=== PATIENT | male | born 1945 | race Caucasian/White ===

== ENCOUNTER → 2020-03-16 10:26 | Outpatient (BNVA) | payer MEDICARE, OTHER, SELFPAY | PROVIDERS: Family Provider Family Medicine; Visit Provider Surgery | DX: Z85.038 Personal history of other malignant neoplasm of large intestine (principal) | CPT/HCPCS: 87635 ==

== ENCOUNTER 2020-03-21 08:12 | Day surgery (SDC) | payer MEDICARE, OTHER, SELFPAY ==
[2020-03-19 11:01] VITALS: BMI 36.1
[2020-03-21 08:26] VITALS: BMI 33.1
[2020-03-21] MEDS: sodium chloride 0.9% 1,000 ML 30 ML IV (08:37)
[2020-03-21 08:51] VITALS: BP 148/85; PULSE 57; RESP 18; TEMP 36.2; O2SAT 95
--- NOTE | 2020-03-21 09:22 | P.ANESASSM_ITS ---
Pre-Anesthetic Assessment Pre-Anesthetic Assessment: Height/Weight: Height 1.78 m Weight 104.78 kg Temp Pulse Resp BP Pulse Ox 97.2 F L 57 L 18 148/85 95 03/21/20 08:51 03/21/20 08:51 03/21/20 08:51 03/21/20 08:51 03/21/20 08:51 Preop Diagnosis: History of colon resection Proposed Procedure: Operation Date: 03/21/20 10:00 Proposed Procedures p Colonoscopy 75042 Z85.038(Not Applicable) - Lupillo Burciaga MD Was Beta Bill taken within 24 hours: N/A Last intake: Intake Last Liquid Date 03/20/20 Last Liquid Time 22:00 Last Solid Date 03/19/20 Last Solid Time 22:00 Social: Social History: No alcohol and No tobacco Exam: Pre-Anes Outpt Exam: alert, oriented x 3, clear to auscultation bilaterally and regular rate & rhythm Airway: Submandibular: WNL Cervical ROM: WNL MP: 2 History/ROS: No significant complaints Pulmonary: Pulmonary: None reported CV/HEM: CV/HEM: HTN : : None reported Hepatic: Hepatic: None reported GI: GI: GERD Metabolic: Metabolic: Morbid obesity Musc/skel: Musc/skel: None reported Neuropsych: Neuropsych: None reported Anesthetic Plan: ASA status: 3 PFSH Anesthesia PFSH: Family History Denies family history of Anesthesia complication Bleeding disorder Social History Smoking and tobacco status: never smoked Second hand smoke exposure: No Alcohol intake: never Adopted: No Caregiver/support person: Yes Lives independently: Yes Household members: spouse Housing: House Marital status: service: No Current occupational status: retired Current occupational exposures/hazards: No Pets and animals: No History of recent travel: Yes Sexually active: No Current gender identity: Male Jyoti/Baptist: Sabianist Special jyoti needs: No Financial difficulty paying for basics: Not Applicable Data Anesthesia Cardiac Studies: No Data to Display
--- NOTE | 2020-03-21 09:23 | W.PM.OPSUD ---
Surgery/Procedure H&P Update DATE OF PROCEDURE: March 21, 2020 DATE H&P PERFORMED: 02/27/20 H&P UPDATE INFORMATION: I have reviewed H&P completed within last 30 days, I have examined patient prior to procedure and No changes to prior documentation PREOP DIAGNOSIS: History of colon resection PRIMARY INDICATION FOR PROCEDURE: The same PLANNED PROCEDURE: Operation Date: 03/21/20 10:00 Proposed Procedures p Colonoscopy 31262 Z85.038(Not Applicable) - Lupillo Burciaga MD
[2020-03-21 10:29] VITALS: BP 130/96; PULSE 60; RESP 16; TEMP 36.1; O2SAT 97
[2020-03-21 10:40] VITALS: BP 158/84; PULSE 58; RESP 18; O2SAT 100
== END 2020-03-21 10:57 | disposition home or self-care (01) ==
PROVIDERS: PCP Family Medicine; Visit Provider Surgery
PROC: 0DJD8ZZ Inspection of Lower Intestinal Tract, Via Natural or Artificial Opening Endoscopic (ICD-10-PCS; CPT 45378; principal; 2020-03-21 10:00)
DX: Z90.49 Acquired absence of other specified parts of digestive tract (principal); Z85.038 Personal history of other malignant neoplasm of large intestine; K57.30 Diverticulosis of large intestine without perforation or abscess without bleeding; I10 Essential (primary) hypertension; E66.01 Morbid (severe) obesity due to excess calories; Z68.33 Body mass index [BMI] 33.0-33.9, adult; K21.9 Gastro-esophageal reflux disease without esophagitis
CPT/HCPCS: 12345; 45378; J2704; J7030

== ENCOUNTER 2020-04-30 11:45 | Inpatient (IN) | payer MEDICARE, OTHER, SELFPAY ==
[2020-04-30] VITALS (47 sets, daily range): BP systolic 119–151; BP diastolic 73–92; PULSE 62–97; RESP 15–96; TEMP 37–38; O2SAT 87–98; BMI 31.5
--- NOTE | 2020-04-30 12:10 | CTR_ITS ---
PROCEDURE INFORMATION: Exam: CT Angiography Chest With Contrast Exam date and time: 04/30/2020 12:22 PM Age: 74 years old Clinical indication: Dyspnea TECHNIQUE: Imaging protocol: Computed tomographic angiography of the chest with intravenous contrast. 3D rendering (Not supervised by radiologist): MIP and/or 3D reconstructed images were created by the technologist. Radiation optimization: All CT scans at this facility use at least one of these dose optimization techniques: automated exposure control; mA and/or kV adjustment per patient size (includes targeted exams where dose is matched to clinical indication); or iterative reconstruction. Contrast material: OMNI 350; Contrast volume: 71 ml; Contrast route: INTRAVENOUS (IV); COMPARISON: CR XR chest 1V portable [id number] 04/30/2020 12:25 PM RADIATION DOSE METRICS: Total DLP (mGy-cm): 847.62 FINDINGS: Pulmonary arteries: Normal. No pulmonary emboli. Aorta: Unremarkable. No aortic aneurysm. No aortic dissection. Lungs: There is ground-glass opacification in the left upper and bilateral lower lobes of the lung with a peripheral predominance. No dominant lung mass. Pleural space: There is a small left pleural effusion. No pneumothorax. Heart: Unremarkable. No cardiomegaly. No pericardial effusion. Lymph nodes: Unremarkable. No enlarged lymph nodes. Bones/joints: Degenerative change is identified in the spine. There is no evidence for acute fracture or malalignment. Soft tissues: Unremarkable. CT/CT angio chest PE protcl [id number] IMPRESSION: There is no evidence for a pulmonary embolus. There is bilateral ground-glass lung opacification consistent with infection and/or edema. Covid 19 pneumonia would be a consideration. Radiation Dose CTDIVOL = (mGy): DLP = 847.62 (mGy-cm)
--- NOTE | 2020-04-30 12:11 | XR_ITS ---
WS: [id number] Exam: XR chest 1V portable [id number] Date/Time of Exam: 04/30/2020 12:11 PM Reason For Exam: dyspnea/cough Comparison 03/16/2009. There are patchy infiltrates in the mid and lower left lung suggesting pneumonia. The right lung is r elatively clear. Normal cardiomediastinal structures. No pleural effusions. Probable hiatal hernia. R egional bony elements are intact. XR/XR chest 1V portable [id number] IMPRESSION: 1. Patchy groundglass infiltrates in the mid and lower left lung suggesting pne umonia.
--- NOTE | 2020-04-30 12:13 | ED_ITS ---
HPI - COVID General: Chief Complaint: COVID symptoms Stated Complaint: COVID +/SOB Time Seen by Provider: 04/30/20 12:07 Triage information: No fever, cough or shortness of breath . Exposure to COVID + person last 14 days History of Present Illness: HPI Narrative: 74-year-old male presents emergency room complaining of having Covid. In the nurses notes he states he has had it for 14 days however when we checked with his primary care doctor he was diagnosed on 04 23. He has had increasing shortness of breath and cough as well as muscle aches he has had some loose stools but no froilan diarrhea. The last 24 hours he had increasing difficulty with shortness of breath. Normally he does not wear oxygen. His sats are now in the low 90s. complaint: known COVID positive Prior covid testing: yes, results known (Copy obtained from PCP is scanned to the chart) COVID 19 common symptoms: positive fever(s), chills, cough, non-productive cough, dyspnea, fatigue, body aches, headache(s), nasal congestion, nausea and diarrhea COVID 19 other sytmptoms: negative chest pain Onset (ago): day(s) (approx 14 d) Severity: severe Pertinent comorbid conditions: hypertension Treatment prior to arrival: none COVID Results: Nasal/Oral Coronavirus 2019 PCR Negative 03/16/20 10:26 03/16/20 Review of Systems Const: Reports: fever(s), chills, body aches and fatigue ENMT: Reports: nasal congestion Card: Denies: chest pain, edema, dyspnea on exertion or orthopnea Resp: Reports: dyspnea and non-productive cough GI: Reports: nausea and diarrhea : Denies: flank pain, dysuria, urinary frequency or urinary urgency Skin/Breast: Denies: rash or pruritus Neuro: Reports: headache(s) PFSH ED PFSH: Medical History (Updated 04/30/20 @ 15:34 by Pancho Jones MD) BPH (benign prostatic hyperplasia) GERD (gastroesophageal reflux disease) History of colon cancer Hyperlipidemia Hypertension Peripheral neuropathy Surgical History (Updated 04/30/20 @ 15:31 by Pancho Jones MD) History of appendectomy History of colonoscopy (~03/2020[place] [place] of [place]oscopy with polypectomy (12/2018) History of hip replacement, total History of partial colectomy (~01/2019) DR. [facility] [place] Family History (Updated 04/30/20 @ 15:31 by Pancho Jones MD) Mother Stroke Father CAD (coronary artery disease) Denies family history of Anesthesia complication Bleeding disorder Social History Smoking and tobacco status: never smoked Second hand smoke exposure: No Alcohol intake: never Adopted: No Caregiver/support person: Yes Lives independently: Yes Household members: spouse Housing: House Marital status: service: No Current occupational status: retired Current occupational exposures/hazards: No Pets and animals: No History of recent travel: Yes Sexually active: No Current gender identity: Male Jyoti/Jewish: Gnosticism Special jyoti needs: No Financial difficulty paying for basics: Not Applicable Physical Exam Const: COMMON NORMALS: no acute distress GENERAL APPEARANCE: cooperative and comfortable ORIENTATION/CONSCIOUSNESS: Yes awake, Yes oriented to person, Yes oriented to place and Yes oriented to time HENMT: COMMON NORMALS: normocephalic, atraumatic and hearing grossly normal bilaterally HEAD & SCALP: normocephalic and atraumatic Neck/C-Spine: COMMON NORMALS: no JVD Resp: AUSCULTATION: rhonchi and wheezes Cardio: COMMON NORMALS: no JVD, regular rhythm and No murmurs present (Cardio) RATE: tachycardic RHYTHM: regular rhythm GI: COMMON NORMALS: Soft to palpation and No hepatosplenomegaly present AUSCULTATION: Yes normoactive bowel sounds PALPATION: Yes Soft to palpation, No Tenderness to palpation present (GI), No Guarding due to palpation present (GI) and Yes No hepatosplenomegaly present Extremity: COMMON NORMALS: normal to inspection, capillary refill normal, no clubbing, cyanosis or edema, no calf tenderness and no pedal edema Neuro: SENSORIUM/ORIENTATION: Yes oriented to person, Yes oriented to place and Yes oriented to time Skin: COMMON NORMALS: no rashes or lesions noted GENERAL SKIN EXAM: no rashes or lesions noted Course Vital Signs: Vital signs: Vital Signs Temperature 97.6 F 05/01/20 12:00 Pulse Rate 70 05/01/20 13:16 Respiratory Rate 18 05/01/20 13:16 Blood Pressure 129/77 05/01/20 13:00 Pulse Oximetry 93 05/01/20 13:16 MDM - COVID MDM Narrative: Medical decision making narrative: Requiring oxygen supplement suspect he will continue to worsen. Will admit to the VICU, see Dr. Meng's H&P and orders. Lab Data: Labs: Lab Results 04/30/20 04/30/20 04/30/20 Range/Units 12:29 12:43 12:43 WBC 5.8 (4.0-10.0) 10^3/ uL RBC 3.66 L (4.1-5.3) 10^6/u L Hgb 11.6 L (11.7-16.6) g/dL Hct 35.1 L (42.0-52.0) % MCV 95.9 H (80-94) fL MCH 31.7 (28.0-34.0) pg MCHC 33.0 (30.0-36.0) g/dL RDW 12.1 (12.1-15.1) % Plt Count 330 (130-400) 10^3/c mm MPV 8.8 (7.4-10.4) fL Neut % (Auto) 81.0 % Lymph % (Auto) 12.8 % Wirt % (Auto) 4.8 % Eos % (Auto) 1.2 % Baso % (Auto) 0.0 % Neut # (Auto) 4.68 (1.8-7.7) 10^3/u L Lymph # (Auto) 0.7 L (0.8-4.8) 10^3/u L Wirt # (Auto) 0.3 (0.2-0.9) 10^3/u L Eos # (Auto) 0.1 (0.0-0.8) 10^3/u L Baso # (Auto) 0.0 (0.0-0.1) 10^3/u L Nucleated RBC % (a uto) 0 % Nucleated RBCs # 0.0 /100WBC Fibrinogen 768 H (174-498) mg/dL D-Dimer 1.39 H (0-0.59) ug/mIFE U Specimen Type Arterial Sample Site Radial, left ABG pH 7.47 H (7.35-7.45) ABG pCO2 32.0 L (35-45) mmHg ABG pO2 53.6 L (80.0-100.0) mmH g ABG HCO3 23.5 (22-26) mmol/L ABG O2 Saturation 91.0 ABG Base Excess 0.4 (-2.0-2.0) mmol/ L Elvis Test Pos A-a O2 Gradient 7.5 (5-10) mmHg Hematocrit 36.4 L (42-52) % Hgb O2 Saturation 89.4 L (95-100) % Carboxyhemoglobin 1.2 (0.4-20.1) %THgb Methemoglobin 0.6 (0.4-1.5) % Total Hemoglobin 11.9 L (14-18) g/dL Sodium 135.0 (131-143) mmol/L Potassium 4.7 (3.5-5.0) mmol/L Glucose 126.0 H (70-115) mg/dL Ionized Calcium 1.1 (1.1-1.4) mmol/L O2 Delivery Device Room air FiO2 21.0 % Animal Treatment Investigator ID [place]ak Chloride (98-107) mmol/L Carbon Dioxide (22-29) mmol/L Anion Gap (5-19) BUN (8-23) mg/dL Creatinine (0.7-1.2) mg/dL GFR Calculation Calculated Osmolal ity (285-295) mOsm/k g Calcium (8.5-10.5) mg/dL Ferritin (30-400) ng/mL Total Bilirubin (0.15-1.2) mg/dL AST (0-40) U/L ALT (0-41) U/L Alkaline Phosphata se (40-130) IU/L C-Reactive Protein (0.0-4.9) mg/L Total Protein (6.6-8.7) g/dL Albumin (3.5-5.2) g/dL Globulin (1.3-4.6) g/dL 04/30/20 Range/Units 12:43 WBC (4.0-10.0) 10^3/ uL RBC (4.1-5.3) 10^6/u L Hgb (11.7-16.6) g/dL Hct (42.0-52.0) % MCV (80-94) fL MCH (28.0-34.0) pg MCHC (30.0-36.0) g/dL RDW (12.1-15.1) % Plt Count (130-400) 10^3/c mm MPV (7.4-10.4) fL Neut % (Auto) % Lymph % (Auto) % Wirt % (Auto) % Eos % (Auto) % Baso % (Auto) % Neut # (Auto) (1.8-7.7) 10^3/u L Lymph # (Auto) (0.8-4.8) 10^3/u L Wirt # (Auto) (0.2-0.9) 10^3/u L Eos # (Auto) (0.0-0.8) 10^3/u L Baso # (Auto) (0.0-0.1) 10^3/u L Nucleated RBC % (a uto) % Nucleated RBCs # /100WBC Fibrinogen (174-498) mg/dL D-Dimer (0-0.59) ug/mIFE U Specimen Type Sample Site ABG pH (7.35-7.45) ABG pCO2 (35-45) mmHg ABG pO2 (80.0-100.0) mmH g ABG HCO3 (22-26) mmol/L ABG O2 Saturation ABG Base Excess (-2.0-2.0) mmol/ L Elvis Test A-a O2 Gradient (5-10) mmHg Hematocrit (42-52) % Hgb O2 Saturation (95-100) % Carboxyhemoglobin (0.4-20.1) %THgb Methemoglobin (0.4-1.5) % Total Hemoglobin (14-18) g/dL Sodium 134 L (131-143) mmol/L Potassium 4.8 (3.5-5.0) mmol/L Glucose 120 H (70-115) mg/dL Ionized Calcium (1.1-1.4) mmol/L O2 Delivery Device FiO2 % Animal Treatment Investigator ID Chloride 98 (98-107) mmol/L Carbon Dioxide 23 (22-29) mmol/L Anion Gap 17.8 (5-19) BUN 18 (8-23) mg/dL Creatinine 0.9 (0.7-1.2) mg/dL GFR Calculation Not Reportable Calculated Osmolal ity 281 L (285-295) mOsm/k g Calcium 8.7 (8.5-10.5) mg/dL Ferritin 700 H (30-400) ng/mL Total Bilirubin 0.3 (0.15-1.2) mg/dL AST 44 H (0-40) U/L ALT 41 (0-41) U/L Alkaline Phosphata se 91 (40-130) IU/L C-Reactive Protein 144.8 H (0.0-4.9) mg/L Total Protein 7.1 (6.6-8.7) g/dL Albumin 3.7 (3.5-5.2) g/dL Globulin 3.4 (1.3-4.6) g/dL COVID Results: Nasal/Oral Coronavirus 2019 PCR Negative 03/16/20 10:26 03/16/20 Discharge Plan Discharge Patient Disposition: Admitted As Inpatient Admit Provider: Pancho Jones Clinical Impression: Pneumonia due to 2019 novel coronavirus Condition: Stable Coding Level of Care Code ED 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
[2020-04-30 12:40] LABS: ABG PH Result 7.47 (7.35-7.45); Alveolar-Arterial Oxygen Gradi 7.5 mmHg (5-10); Arterial Blood Gas Hematocrit 36.4 % (42-52); Base Excess ABG 0.4 mmol/L (-2.0-2.0); Blood Gas Allen Test Pos; Blood Gas Operator Identificat CAAK; Blood Gas Sample Site Radial, left; Blood Gas Sample Type Arterial; Carboxyhemoglobin 1.2 %THgb (0.4-20.1); HCO3 ABG 23.5 mmol/L (22-26); HGB O2 Sat 89.4 % (95-100); Ionized Calcium Level - ABG 1.1 mmol/L (1.1-1.4); Methemoglobin 0.6 % (0.4-1.5); Oxygen Device ROOM AIR; PO2 ABG 53.6 mmHg (80.0-100.0); Potassium Level - ABG 4.7 mmol/L (3.5-5.0); Total Hemoglobin 11.9 g/dL (14-18)
[2020-04-30 12:50] LABS: Eosinophils # 0.1 10^3/uL (0.0-0.8); Eosinophils % 1.2 %; Hematocrit 35.1 % (42.0-52.0); Hemoglobin 11.6 g/dL (11.7-16.6); Lymphocytes # 0.7 10^3/uL (0.8-4.8); Lymphocytes % 12.8 %; Mean Corpuscular Hemoglobin 31.7 pg (28.0-34.0); Mean Corpuscular Volume 95.9 fL (80-94); Mean Platelet Volume 8.8 fL (7.4-10.4); Monocytes # 0.3 10^3/uL (0.2-0.9); Monocytes % 4.8 %; Neutrophils # 4.68 10^3/uL (1.8-7.7); Nucleated Red Blood Cells % 0 %; Platelet Count 330 10^3/cmm (130-400); Red Blood Count 3.66 10^6/uL (4.1-5.3); Red Cell Distribution Width 12.1 % (12.1-15.1); White Blood Count 5.8 10^3/uL (4.0-10.0)
[2020-04-30 13:03] LABS: Fibrinogen 768 mg/dL (174-498)
[2020-04-30 13:06] LABS: D Dimer 1.39 ug/mIFEU (0-0.59)
[2020-04-30 13:08] LABS: Alanine Aminotransferase 41 U/L (0-41); Albumin Level 3.7 g/dL (3.5-5.2); Alkaline Phosphatase 91 IU/L (40-130); Anion Gap 17.8 (5-19); Aspartate Amino Transferase 44 U/L (0-40); Blood Urea Nitrogen 18 mg/dL (8-23); C Reactive Protein 144.8 mg/L (0.0-4.9); Calcium 8.7 mg/dL (8.5-10.5); Carbon Dioxide 23 mmol/L (22-29); Chloride 98 mmol/L (98-107); Ferritin 700 ng/mL (30-400); Globulin 3.4 g/dL (1.3-4.6); Glucose 120 mg/dL (65-115); Osmolality Calculated 281 mOsm/kg (285-295); Potassium 4.8 mmol/L (3.5-5.1); Sodium 134 mmol/L (136-145); Total Bilirubin 0.3 mg/dL (0.15-1.2); Total Protein 7.1 g/dL (6.6-8.7)
[2020-04-30] MEDS: iohexol 350 mg/mL 100 mL Btl IV (13:42)
--- NOTE | 2020-04-30 15:13 | PC.NURSE ---
Patient to CT via stretcher
--- NOTE | 2020-04-30 15:14 | PC.NURSE ---
Attempted to give report. Told room not ready. Told Vicki would call to take report once ready.
--- NOTE | 2020-04-30 15:28 | PM.HP ---
Providers/Chief Complaint Admitting Physician: Pancho Jones MD Primary Care Provider: Linda Lara MD Chief Complaint: COVID +/SOB History of Present Illness Adama Galeas is a 74 year old male with a past medical history of hypertension, who presents to [facility] due to fatigue, malaise, shortness of breath, cough, fevers and chills. 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 No known exposure to COVID-19, no recent travel, no history of pneumonia, no history of COPD, no history of CHF, no history of CAD, no history of strokes. 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 He presented to his primary care physician's office, he tested positive for Covid about a week ago, has tried to continue his day-to-day function, but continues to have significant fatigue, malaise and shortness of breath with exertion, nonproductive cough. Review of Systems Const: Reports: fever(s), chills, fatigue and malaise Eyes: Denies: change in vision or blurry vision ENMT: Denies: nasal congestion Card: Denies: chest pain or palpitations Resp: Reports: dyspnea and non-productive cough; Denies: productive cough or wheezing GI: Denies: abdominal pain, nausea, vomiting, hematemesis, diarrhea, constipation, hematochezia or melena : Denies: flank pain, difficulty urinating, dysuria or urinary frequency Musc: Denies: neck pain or back pain Skin/Breast: Denies: rash Neuro: Denies: headache(s), dizziness or vertigo Psych: Denies: anxiety or depression Endo: Denies: polyuria or polydipsia Medications/Allergies Home Medications Medication Instructions Recorded Confirmed Last Taken Type lisinopril 20 mg tablet 20 mg PO DAILY 02/22/20 04/30/20 04/30/20 History montelukast 10 mg tablet 10 mg PO DAILY 02/22/20 04/30/20 03/20/20 History omeprazole 20 mg capsule,delayed 20 mg PO DAILY 02/22/20 04/30/20 03/20/20 History release Vitamin D3 1 cap PO DAILY 04/30/20 04/30/20 Unknown History acetaminophen [Tylenol Extra 1,000 mg PO PRN 04/30/20 04/30/20 Unknown History Strength] aspirin 325 mg PO DAILY PRN 04/30/20 04/30/20 Unknown History multivitamin 1 tab PO DAILY 04/30/20 04/30/20 Unknown History zinc 1 cap PO DAILY 04/30/20 04/30/20 Unknown History Allergies Allergy/AdvReac Type Severity Reaction Status Date / Time No Known Allergies Allergy Verified 03/30/20 15:51 PFSH Acute PFSH: Medical History (Updated 04/30/20 @ 15:34 by Pancho Jones MD) BPH (benign prostatic hyperplasia) GERD (gastroesophageal reflux disease) History of colon cancer Hyperlipidemia Hypertension Peripheral neuropathy Surgical History (Updated 04/30/20 @ 15:31 by Pancho Jones MD) History of appendectomy [place] [facility] [place] of colonoscopy with polypectomy (12/2018) History of hip replacement, total History of partial colectomy (~01/2019) DR. CAMPBELL [place] Family History (Updated 04/30/20 @ 15:31 by Pancho Jones MD) Mother Stroke Father CAD (coronary artery disease) Denies family history of Anesthesia complication Bleeding disorder Social History Smoking and tobacco status: never smoked Second hand smoke exposure: No Alcohol intake: never Adopted: No Caregiver/support person: Yes Lives independently: Yes Household members: spouse Housing: House Marital status: service: No Current occupational status: retired Current occupational exposures/hazards: No Pets and animals: No History of recent travel: Yes Sexually active: No Current gender identity: Male Jyoti/Spiritism: Sabianist Special jyoti needs: No Financial difficulty paying for basics: Not Applicable Vitals/I&O/Wt Last Vital Signs Temp 98.9 F 04/30/20 12:04 Pulse 88 04/30/20 15:00 Resp 18 04/30/20 15:00 BP 144/76 04/30/20 15:00 Pulse Ox 98 04/30/20 15:00 Weight last 48 hrs Weight 99.79 kg Physical Exam Const: COMMON NORMALS: no acute distress and patient oriented x3 GENERAL APPEARANCE: cooperative and comfortable HENMT: COMMON NORMALS: normocephalic HEAD & SCALP: normocephalic Eye: COMMON NORMALS: Equal, round and reactive pupils present and EOMs intact bilaterally GENERAL EYE: appearance normal, both eyes and all related structures PUPIL: Yes Equal, round and reactive pupils present Neck/C-Spine: COMMON NORMALS: full ROM, no lymphadenopathy, no JVD and Thyroid normal THYROID: Thyroid normal Lymph: LYMPHATIC: no lymphadenopathy noted Resp: COMMON NORMALS: normal respiratory effort, No retractions, No use of accessory muscles and clear to auscultation bilaterally AUSCULTATION: clear to auscultation bilaterally Cardio: COMMON NORMALS: no JVD, regular rate, regular rhythm, S1 normal heart sound present, S2 normal heart sound present, No gallops present (Cardio), No clicks present (Cardio) and No murmurs present (Cardio) RATE: regular rate RHYTHM: regular rhythm HEART SOUNDS: S1 normal heart sound present and S2 normal heart sound present GI: COMMON NORMALS: Normal to inspection, nondistended, normoactive bowel sounds present, Soft to palpation, non-tender and No hepatosplenomegaly present PALPATION: Yes Soft to palpation and Yes No hepatosplenomegaly present Extremity: COMMON NORMALS: normal to inspection, full ROM and no pedal edema Neuro: COMMON NORMALS: patient oriented x3, CN's II-XII intact bilaterally, moves all extremities and no focal motor deficits Psych: COMMON NORMALS: mental status grossly normal, Normal thought process present and cooperative THOUGHT PROCESS: Normal thought process present Data : 04/30/20 12:43 04/30/20 12:43 Micro: Microbiology 04/30/20 12:43 Blood Culture - Preliminary Blood SPECIMEN COLLECTED A&P Assessment and plan (1) Acute respiratory failure with hypoxia: -Secondary to COVID-19 pneumonia, concern for secondary bacterial pneumonia Admit to viral ICU -Full code -Full dose Lovenox, for hypercoagulability concerns -Decadron -Remdesivir -Azithromycin and Rocephin -Lasix as needed for fluid overload -Vitamin C and zinc -Monitor respiratory status closely -Physical therapy -Get up out of bed -Advair, albuterol Status: Acute (2) Pneumonia due to 2019 novel coronavirus: - Status: Acute (3) Diverticulosis: Status: Chronic (4) Secondary bacterial pneumonia: Status: Acute Attestations Medical Necessity Statement*: Patient requires hospitalization, inpatient, greater than 2 midnights, for acute hypoxic respiratory failure secondary to COVID-19 pneumonia Coding Level of Care Code 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
[2020-04-30] MEDS: cefTRIAXone 1,000 MG in sodium chloride 0.9% (plus) 50 ML 100 MG IV (16:52)
[2020-04-30] MEDS: enoxaparin 100 mg/mL Syringe SUBCUT (16:52)
[2020-04-30] MEDS: albuterol 8 gm MDI 1 PUFF INHALATION ×3 (16:54→23:31)
[2020-04-30] MEDS: azithromycin 500 MG in sodium chloride 0.9% 250 ML 250 MG IV (17:09)
[2020-04-30] MEDS: ascorbic acid 500 mg Tablet 1000 MG PO (17:56)
[2020-04-30] MEDS: benzonatate 100 mg Capsule PO (18:00)
--- NOTE | 2020-04-30 18:45 | PC.NURSE ---
Received report on patient from Vicki SOFIA. Assumed care at this time.
--- NOTE | 2020-04-30 20:00 | PC.NURSE ---
Patient stated that when he coughs he sometimes has a small bowel movement. He stated he would like to sit on the stool but was afraid that he would get tangled up in all his cords. BSC brought to bedside and I observed patient getting up to BSC with no assist. Tolerated the activity well. He stated that he felt comfortable getting up and down on his own now that the BSC is next to the bed. Encouraged patient to use the call light if he felt he needed any assistance. Patient verbalized understanding.
--- NOTE | 2020-04-30 21:00 | PC.NURSE ---
called to check on . Discussed with regarding face timing patient to be able to see him and talk to him. She stated she would like to do that tomorrow. did talk to patient via phone and patient stated he felt better after visiting with his .
[2020-05-01] VITALS (53 sets, daily range): BP systolic 95–146; BP diastolic 64–88; PULSE 55–83; RESP 16–34; TEMP 36.4–37; O2SAT 86–98
[2020-05-01] MEDS: enoxaparin 100 mg/mL Syringe SUBCUT ×2 (03:42→15:17)
[2020-05-01] MEDS: albuterol 8 gm MDI 1 PUFF INHALATION ×3 (03:58→12:45)
[2020-05-01 04:38] LABS: Lactic Sepsis W/Reflex 1.3 mmol/L (0.5-2.2)
[2020-05-01 05:03] LABS: Hematocrit 34.4 % (42.0-52.0); Hemoglobin 11.2 g/dL (11.7-16.6); Lymphocytes # 0.5 10^3/uL (0.8-4.8); Lymphocytes % 15.5 %; Mean Corpuscular HGB Conc 32.6 g/dL (30.0-36.0); Mean Corpuscular Hemoglobin 31.5 pg (28.0-34.0); Mean Corpuscular Volume 96.6 fL (80-94); Mean Platelet Volume 9.7 fL (7.4-10.4); Monocytes # 0.2 10^3/uL (0.2-0.9); Monocytes % 4.7 %; Neutrophils # 2.71 10^3/uL (1.8-7.7); Neutrophils % 78.9 %; Nucleated Red Blood Cells % 0 %; Platelet Count 298 10^3/cmm (130-400); Red Blood Count 3.56 10^6/uL (4.1-5.3); White Blood Count 3.4 10^3/uL (4.0-10.0)
[2020-05-01 05:14] LABS: INR 1.01 (0.8-1.2)
[2020-05-01 05:15] LABS: Fibrinogen 859 mg/dL (174-498)
[2020-05-01 05:18] LABS: D Dimer 1.23 ug/mIFEU (0-0.59)
[2020-05-01 05:30] LABS: NT Pro B Type Natriuretic Pept 95 pg/mL (0-125); Procalcitonin 0.15 ng/mL (0-0.5)
[2020-05-01 05:33] LABS: C Reactive Protein 168.2 mg/L (0.0-4.9); Magnesium 2.3 mg/dL (1.7-2.3); Phosphorus 3.7 mg/dL (2.5-4.5); Thyroid Stimulating Hormone 0.36 uIU/mL (0.27-4.20)
[2020-05-01 05:34] LABS: Alanine Aminotransferase 41 U/L (0-41); Albumin Level 3.4 g/dL (3.5-5.2); Alkaline Phosphatase 87 IU/L (40-130); Blood Urea Nitrogen 19 mg/dL (8-23); Calcium 8.7 mg/dL (8.5-10.5); Carbon Dioxide 21 mmol/L (22-29); Chloride 99 mmol/L (98-107); Globulin 3.5 g/dL (1.3-4.6); Glucose 148 mg/dL (65-115); Osmolality Calculated 285 mOsm/kg (285-295); Sodium 135 mmol/L (136-145); Total Bilirubin 0.2 mg/dL (0.15-1.2); Total Protein 6.9 g/dL (6.6-8.7)
[2020-05-01 05:41] LABS: Anion Gap 19.8 (5-19); Aspartate Amino Transferase 37 U/L (0-40); Potassium 4.8 mmol/L (3.5-5.1)
[2020-05-01 05:44] LABS: Chol HDL Ratio 3.29 mg/dL (1.0-5.00); Cholesterol 92 mg/dL (0-200); HDL Cholesterol 28 mg/dL (60-100); LDL Cholesterol Calculated 52 mg/dL (50-129); LDL HDL Ratio 1.86 RATIO (0.00-3.22); Triglycerides 59 mg/dL (0-150)
[2020-05-01 05:47] LABS: Creatine Phosphokinase 330 U/L (39-308)
--- NOTE | 2020-05-01 06:00 | ECG_ITS ---
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 Measurements Intervals [place] Rate: 58 P: 42 GA: 170 QRS: 13 QRSD: 100 T: 42 QT: 425 QTc: 419 Interpretive Statements SINUS BRADYCARDIA No previous ECG available for comparison Electronically Signed On 05-01-2020 21:55:08 [place]ER by Soha De Luna M.D. [email or web address]
--- NOTE | 2020-05-01 06:00 | USCV_ITS ---
Adama Galeas Age: 74 Gender: M : 1945 Exam Date: 05/01/2020 06:12 Ordering Phys: Pancho Jones MD Technologist: Stuart Curiel Exam Location: [facility] [place] Indication: SOB BP: 119 / 73 HR: 63 Rhythm: Sinus Technical Quality: Adequate MEASUREMENTS (Male / Female) Normal Values 2D ECHO LV Diastolic Diameter PLAX 3.3 cm 4.2 - 5.9 / 3.9 - 5.3 cm LV Systolic Diameter PLAX 1.8 cm IVS Diastolic Thickness 1.0 cm 0.6 - 1.0 / 0.6 - 0.9 cm IVS Systolic Thickness 1.2 cm LVPW Diastolic Thickness 1.5 cm 0.6 - 1.0 / 0.6 - 0.9 cm LVPW Systolic Thickness 1.0 cm LVOT Diameter 2.0 cm LV Ejection Fraction 2D Teich 76.6 % LV Ejection Fraction MOD 2C 53.2 % LV Ejection Fraction 2C AL 53.5 % LA Diameter 5.0 cm LA Width 4.1 cm LA Height 4.9 cm RA Width 3.5 cm RA Height 5.3 cm Aorta at Sinotubular Diameter 2.7 cm M-MODE LV Diastolic Diameter MM 4.7 cm 4.2 - 5.9 / 3.9 - 5.3 cm LV Systolic Diameter MM 2.9 cm LV Ejection Fraction MM Teich 67.0 % IVS Diastolic Thickness MM 1.3 cm 0.6 - 1.0 / 0.6 - 0.9 cm IVS Systolic Thickness MM 1.6 cm LVPW Diastolic Thickness MM 1.3 cm 0.6 - 1.0 / 0.6 - 0.9 cm LVPW Systolic Thickness MM 1.7 cm RV Diastolic Diameter MM 1.5 cm Aortic Annulus Diameter 3.9 cm LA Ao Ratio MM 1.4 MV E Point Septal Separation 0.8 cm DOPPLER AV Peak Velocity 134.0 cm/s LVOT Peak Velocity 94.0 cm/s AV Area Cont Eq vti 2.0 cm squared AV Area Cont Eq pk 2.2 cm squared MV Area PHT 5.0 cm squared Mitral E to A Ratio 1.0 MV E' Velocity 42.0 cm/s Mitral E to MV E' Ratio 8.2 Mitral E to LV E' Lateral Ratio 7.8 Mitral E to LV E' Septal Ratio 8.8 TR Peak Velocity 215.5 cm/s TR Peak Gradient 18.6 mmHg TV Peak E Velocity 82.0 cm/s Right Atrial Pressure 3.0 mmHg Pulmonary Artery Systolic Pressu 21.6 mmHg FINDINGS Left Ventricle Normal left ventricular cavity size. Normal left ventricular systolic function. No regional wall motion abnormalities. Left ventricular ejection fraction is estimated at 67 %. Grade I/IV diastolic dysfunction (abnormal relaxation filling pattern), normal to mildly elevated filling pressures. Right Ventricle The right ventricle is normal in size and function. Right Atrium The right atrium is normal in size. Left Atrium The left atrium is normal in size. Mitral Valve Moderately thickened mitral valve. No mitral valve stenosis. Mild to moderate mitral valve regurgitation. Aortic Valve Structurally normal aortic valve without significant sclerosis or stenosis. There is no aortic regurgitation. Tricuspid Valve Structurally normal tricuspid valve without significant stenosis or regurgitation. Pulmonary artery systolic pressure is normal. Pulmonic Valve Structurally normal pulmonic valve without significant stenosis. There is no pulmonic regurgitation. Pericardium Normal pericardium without effusion. Aorta Normal ascending aorta dimension. CONCLUSIONS 1-Normal left ventricular cavity size. Normal left ventricular systolic function. No regional wall motion abnormalities. Left ventricular ejection fraction is estimated at 67 %. Grade I/IV diastolic dysfunction (abnormal relaxation filling pattern), normal to mildly elevated filling pressures. 2-There is no pericardial effusion. 3-Moderately thickened mitral valve. No mitral valve stenosis. Mild to moderate mitral valve regurgitation. 4-Right atrial pressure is around 5 mm of mercury. 5-There are no prior echocardiogram studies to compare. Papa Yu MD (Electronically Signed) Final Date: 01 May 2020 19:47 S
[2020-05-01 06:33] LABS: Estmated Average Glucose 117; Hemoglobin A1C 5.7 % (4.0-6.0)
--- NOTE | 2020-05-01 07:10 | PC.NURSE ---
Report given to Vicki SOFIA.
[2020-05-01] MEDS: zinc gluconate 50 mg Tablet PO (09:11)
[2020-05-01] MEDS: lisinopril 20 mg Tablet PO (09:11)
[2020-05-01] MEDS: ascorbic acid 500 mg Tablet 1000 MG PO ×2 (09:11→16:52)
[2020-05-01] MEDS: dexamethasone 4 mg/mL INJ 6 MG IVP (09:11)
[2020-05-01] MEDS: benzonatate 100 mg Capsule PO ×3 (09:11→23:54)
[2020-05-01] MEDS: pantoprazole DR 40 mg Tablet PO (09:11)
--- NOTE | 2020-05-01 11:40 | P.PN_ITS ---
Subjective Subjective: Interval history: Patient was examined this morning, he is in bed, complaining of fatigue, no fevers, no chills, no shortness of breath, is on 4 L Vitals/I&O/Wt Last Vital Signs Temp 98.1 F 05/01/20 08:00 Pulse 58 L 05/01/20 10:30 Resp 22 H 05/01/20 09:00 BP 111/70 05/01/20 10:30 Pulse Ox 94 05/01/20 10:30 04/30/20 05/01/20 05/01/20 22:59 06:59 14:59 Intake Total 530 / 530 320 / 850 570 / 570 Output Total 0 / 0 600 / 600 150 / 150 Balance 530 / 530 -280 / 250 420 / 420 Weight last 48 hrs Weight 99.79 kg Physical Exam Const: COMMON NORMALS: no acute distress and patient oriented x3 HENMT: COMMON NORMALS: normocephalic HEAD & SCALP: normocephalic Neck/C-Spine: COMMON NORMALS: no JVD Resp: COMMON NORMALS: normal respiratory effort, No retractions and No use of accessory muscles AUSCULTATION: crackles Cardio: COMMON NORMALS: no JVD, regular rate, regular rhythm, S1 normal heart sound present and S2 normal heart sound present RATE: regular rate RHYTHM: regular rhythm HEART SOUNDS: S1 normal heart sound present and S2 normal heart sound present GI: COMMON NORMALS: Normal to inspection, nondistended, normoactive bowel sounds present, Soft to palpation, non-tender, No hepatosplenomegaly present, no masses and no bruits PALPATION: Yes Soft to palpation and Yes No hepatosplenomegaly present Extremity: COMMON NORMALS: capillary refill normal, no clubbing, cyanosis or edema, no calf tenderness and no pedal edema Neuro: COMMON NORMALS: patient oriented x3 Psych: COMMON NORMALS: mental status grossly normal Data : 05/01/20 03:35 05/01/20 03:35 Micro: Microbiology 04/30/20 03:35 Blood Culture - Preliminary Blood SPECIMEN COLLECTED 04/30/20 12:43 Blood Culture - Preliminary Blood SPECIMEN COLLECTED A&P Assessment and plan (1) Acute respiratory failure with hypoxia: -Secondary to COVID-19 pneumonia, concern for secondary bacterial pneumonia Admit to viral ICU -Full code -Full dose Lovenox, for hypercoagulability concerns -Decadron -Remdesivir -Azithromycin and Rocephin -Lasix as needed for fluid overload -Vitamin C and zinc -Monitor respiratory status closely -Physical therapy -Get up out of bed -Advair, albuterol Status: Acute (2) Pneumonia due to 2019 novel coronavirus: - Status: Acute (3) Diverticulosis: Status: Chronic (4) Secondary bacterial pneumonia: Status: Acute Additional A&P Information Plan for today is to get up out of bed, encourage oral hydration, wean oxygen, no Lasix for today Attestations Medical Necessity Statement*: Patient requires hospitalization for acute respiratory failure secondary to COVID-19 Coding Level of Care Code Acute Lay Midwife for [facility] Diagnoses Acute respiratory failure with hypoxia J96.01 Pneumonia due to 2019 novel coronavirus U07.1; J12.89 Diverticulosis K57.90 Secondary bacterial pneumonia J15.9
[2020-05-01] MEDS: cefTRIAXone 1,000 MG in sodium chloride 0.9% (plus) 50 ML 100 MG IV (15:19)
[2020-05-01] MEDS: azithromycin 500 MG in sodium chloride 0.9% 250 ML 250 MG IV (15:20)
--- NOTE | 2020-05-01 18:45 | PC.NURSE ---
Received report on patient from Vicki SOFIA. Assumed care at this time.
[2020-05-01] MEDS: albuterol 8 gm MDI 2 PUFF INHALATION (19:44)
--- NOTE | 2020-05-01 19:54 | PC.PT ---
PT note; patient receiving therapy from occupational therapy staff, discussed with them, and no need of PT intervention at this time, but we'll revisit this if needed.
[2020-05-01] MEDS: acetaminophen 325 mg Tablet 650 MG PO (23:54)
[2020-05-02] VITALS (49 sets, daily range): BP systolic 112–179; BP diastolic 63–97; PULSE 50–90; RESP 6–25; TEMP 36.6–37.1; O2SAT 80–99
[2020-05-02] MEDS: enoxaparin 100 mg/mL Syringe SUBCUT ×2 (03:27→15:03)
[2020-05-02 03:56] LABS: Basophils % 0.1 %; Hematocrit 32.9 % (42.0-52.0); Hemoglobin 10.9 g/dL (11.7-16.6); Lymphocytes # 0.7 10^3/uL (0.8-4.8); Lymphocytes % 8.4 %; Mean Corpuscular HGB Conc 33.1 g/dL (30.0-36.0); Mean Corpuscular Hemoglobin 31.5 pg (28.0-34.0); Mean Corpuscular Volume 95.1 fL (80-94); Monocytes # 0.3 10^3/uL (0.2-0.9); Monocytes % 3.7 %; Neutrophils % 87.2 %; Nucleated Red Blood Cells % 0 %; Platelet Count 364 10^3/cmm (130-400); Red Blood Count 3.46 10^6/uL (4.1-5.3); White Blood Count 8.4 10^3/uL (4.0-10.0)
[2020-05-02 04:14] LABS: INR 1.07 (0.8-1.2)
[2020-05-02 04:15] LABS: Fibrinogen 713 mg/dL (174-498)
[2020-05-02 04:17] LABS: D Dimer 0.93 ug/mIFEU (0-0.59)
[2020-05-02 04:18] LABS: C Reactive Protein 71.1 mg/L (0.0-4.9); Magnesium 2.4 mg/dL (1.7-2.3); Phosphorus 2.8 mg/dL (2.5-4.5)
[2020-05-02 04:23] LABS: Alanine Aminotransferase 46 U/L (0-41); Albumin Level 3.3 g/dL (3.5-5.2); Alkaline Phosphatase 78 IU/L (40-130); Anion Gap 15.6 (5-19); Aspartate Amino Transferase 27 U/L (0-40); Blood Urea Nitrogen 27 mg/dL (8-23); Carbon Dioxide 21 mmol/L (22-29); Chloride 103 mmol/L (98-107); Globulin 3.3 g/dL (1.3-4.6); Glucose 180 mg/dL (65-115); Osmolality Calculated 290 mOsm/kg (285-295); Potassium 4.6 mmol/L (3.5-5.1); Sodium 135 mmol/L (136-145); Total Bilirubin 0.2 mg/dL (0.15-1.2); Total Protein 6.6 g/dL (6.6-8.7)
[2020-05-02 04:25] LABS: Lactic Sepsis W/Reflex 2.2 mmol/L (0.5-2.2)
[2020-05-02 04:28] LABS: NT Pro B Type Natriuretic Pept 290 pg/mL (0-125); Procalcitonin 0.14 ng/mL (0-0.5)
[2020-05-02 04:40] LABS: Creatine Phosphokinase 197 U/L (39-308)
[2020-05-02 05:31] LABS: Reflex Lactate Order REFLEX LACTIC ORDERD
--- NOTE | 2020-05-02 06:00 | ECG_ITS ---
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 Measurements Intervals [place] Rate: 61 P: 44 CA: 157 QRS: 16 QRSD: 89 T: 31 QT: 396 QTc: 400 Interpretive Statements SINUS RHYTHM Compared to ECG 05/01/2020 04:02:40 Sinus bradycardia no longer present Electronically Signed On 05-04-2020 10:28:16 COMMUTATOR OPERATOR by Soha De Luna M.D. [id number]
[2020-05-02 07:04] LABS: Add Urine Microscopic? NO
[2020-05-02 07:17] LABS: Bilirubin Urine Neg (Negative); Blood Urine Neg (Negative); Glucose Urine UA Norm (Normal); Ketones Urine Negative (Negative); Leukocyte Esterase Urine Negative (Negative); Nitrate Urine Negative (Negative); Protein Urine Neg (Negative); Specific Gravity, Urine 1.015 (1.005-1.030); Urine Appearance Clear (CLEAR); Urine Color Yellow (Yellow); Urobilinogen Urine Norm (Negative)
[2020-05-02 07:32] LABS: Lactic Acid level (Lactate) 2.5 mmol/L (0.5-2.2)
[2020-05-02] MEDS: ascorbic acid 500 mg Tablet 1000 MG PO ×2 (08:48→17:33)
[2020-05-02] MEDS: lisinopril 20 mg Tablet PO (08:48)
[2020-05-02] MEDS: pantoprazole DR 40 mg Tablet PO (08:48)
[2020-05-02] MEDS: zinc gluconate 50 mg Tablet PO (08:48)
[2020-05-02] MEDS: dexamethasone 4 mg/mL INJ 6 MG IVP (08:48)
[2020-05-02] MEDS: albuterol 8 gm MDI 2 PUFF INHALATION (10:34)
--- NOTE | 2020-05-02 11:13 | P.PN_ITS ---
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 Vitals/I&O/Wt Last Vital Signs Temp 97.8 F 05/02/20 04:00 Pulse 70 05/02/20 10:36 Resp 16 05/02/20 10:36 BP 120/74 05/02/20 08:30 Pulse Ox 99 05/02/20 10:36 05/01/20 05/02/20 05/02/20 22:59 06:59 14:59 Intake Total 1040 / 1810 100 / 1910 100 / 100 Output Total 156 / 306 900 / 1206 903 / 903 Balance 884 / 1504 -800 / 704 -803 / -803 Weight last 48 hrs Weight 99.79 kg Physical Exam Const: COMMON NORMALS: no acute distress and patient oriented x3 HENMT: COMMON NORMALS: normocephalic HEAD & SCALP: normocephalic Neck/C-Spine: COMMON NORMALS: no JVD Resp: COMMON NORMALS: normal respiratory effort, No retractions and No use of accessory muscles AUSCULTATION: crackles Cardio: COMMON NORMALS: no JVD, regular rate, regular rhythm, S1 normal heart sound present and S2 normal heart sound present RATE: regular rate RHYTHM: regular rhythm HEART SOUNDS: S1 normal heart sound present and S2 normal heart sound present GI: COMMON NORMALS: Normal to inspection, nondistended, normoactive bowel sounds present, Soft to palpation, non-tender, No hepatosplenomegaly present, no masses and no bruits PALPATION: Yes Soft to palpation and Yes No hepatosplenomegaly present Extremity: COMMON NORMALS: capillary refill normal, no clubbing, cyanosis or edema, no calf tenderness and no pedal edema Neuro: COMMON NORMALS: patient oriented x3 Psych: COMMON NORMALS: mental status grossly normal Data : 05/02/20 03:20 05/02/20 03:20 Micro: Microbiology 04/30/20 03:35 Blood Culture - Preliminary Blood NEGATIVE TO DATE 04/30/20 12:43 Blood Culture - Preliminary Blood NEGATIVE TO DATE A&P Assessment and plan (1) Acute respiratory failure with hypoxia: -Secondary to COVID-19 pneumonia, concern for secondary bacterial pneumonia Admit to viral ICU -Full code -Full dose Lovenox, for hypercoagulability concerns -Decadron -Remdesivir -Azithromycin and Rocephin -Lasix as needed for fluid overload -Vitamin C and zinc -Monitor respiratory status closely -Physical therapy -Get up out of bed -Advair, albuterol Plan for today get up out of bed, ambulate, give a touch of Lasix for crackles on lung exam, 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, 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, 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, will keep overnight, encourage ambulation, hopefully discharge early tomorrow morning Status: Acute (2) Pneumonia due to 2019 novel coronavirus: - Status: Acute (3) Diverticulosis: Status: Chronic (4) Secondary bacterial pneumonia: Status: Acute Additional A&P Information Plan for today is to get up out of bed, encourage oral hydration, wean oxygen, no Lasix for today Attestations Medical Necessity Statement*: Patient requires hospitalization for acute respiratory failure with hypoxia secondary COVID-19, likely discharge in the [facility] 24 hours Coding Level of Care Code Acute Press Set Up for [facility] J Diagnoses Acute respiratory failure with hypoxia J96.01 Pneumonia due to 2019 novel coronavirus U07.1; J12.89 Diverticulosis K57.90 Secondary bacterial pneumonia J15.9
[2020-05-02] MEDS: cefTRIAXone 1,000 MG in sodium chloride 0.9% (plus) 50 ML 100 MG IV (15:05)
[2020-05-02] MEDS: azithromycin 500 MG in sodium chloride 0.9% 250 ML 250 MG IV (16:32)
[2020-05-03] VITALS (26 sets, daily range): BP systolic 109–166; BP diastolic 62–94; PULSE 52–103; RESP 11–27; TEMP 36.5–36.9; O2SAT 87–97
[2020-05-03] MEDS: enoxaparin 100 mg/mL Syringe SUBCUT ×2 (04:12→15:10)
[2020-05-03 04:28] LABS: Basophils % 0.1 %; Hematocrit 35.6 % (42.0-52.0); Hemoglobin 11.2 g/dL (11.7-16.6); Lymphocytes # 0.7 10^3/uL (0.8-4.8); Lymphocytes % 7.4 %; Mean Corpuscular HGB Conc 31.5 g/dL (30.0-36.0); Mean Corpuscular Hemoglobin 31.5 pg (28.0-34.0); Mean Platelet Volume 9.1 fL (7.4-10.4); Monocytes # 0.3 10^3/uL (0.2-0.9); Neutrophils # 8.75 10^3/uL (1.8-7.7); Neutrophils % 88.3 %; Nucleated Red Blood Cells % 0 %; Platelet Count 408 10^3/cmm (130-400); Red Blood Count 3.56 10^6/uL (4.1-5.3); White Blood Count 9.9 10^3/uL (4.0-10.0)
[2020-05-03 04:54] LABS: Alanine Aminotransferase 45 U/L (0-41); Albumin Level 3.1 g/dL (3.5-5.2); Alkaline Phosphatase 73 IU/L (40-130); Aspartate Amino Transferase 22 U/L (0-40); Blood Urea Nitrogen 26 mg/dL (8-23); Calcium 9.1 mg/dL (8.5-10.5); Carbon Dioxide 19 mmol/L (22-29); Chloride 104 mmol/L (98-107); Globulin 3.4 g/dL (1.3-4.6); Glucose 159 mg/dL (65-115); Osmolality Calculated 292 mOsm/kg (285-295); Sodium 137 mmol/L (136-145); Total Bilirubin 0.2 mg/dL (0.15-1.2); Total Protein 6.5 g/dL (6.6-8.7)
[2020-05-03 04:57] LABS: C Reactive Protein 28.3 mg/L (0.0-4.9); Magnesium 2.4 mg/dL (1.7-2.3); Phosphorus 3.1 mg/dL (2.5-4.5)
[2020-05-03 04:59] LABS: Lactic Sepsis W/Reflex 3.1 mmol/L (0.5-2.2)
[2020-05-03 05:01] LABS: Fibrinogen 718 mg/dL (174-498); INR 1.15 (0.8-1.2)
[2020-05-03 05:08] LABS: D Dimer 0.67 ug/mIFEU (0-0.59); NT Pro B Type Natriuretic Pept 662 pg/mL (0-125); Procalcitonin 0.09 ng/mL (0-0.5)
[2020-05-03 05:20] LABS: Creatine Phosphokinase 132 U/L (39-308)
--- NOTE | 2020-05-03 06:00 | ECG_ITS ---
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 Measurements Intervals [place] Rate: 59 P: 47 TN: 164 QRS: 25 QRSD: 86 T: 33 QT: 394 QTc: 393 Interpretive Statements SINUS BRADYCARDIA Compared to ECG 05/02/2020 03:39:58 Sinus rhythm no longer present Electronically Signed On 05-04-2020 10:28:12 HUSKER OPERATOR by Soha De Luna M.D. [email or web address] centerhipages Groupmet[facility].[employer]/store/[id number]
[2020-05-03 06:06] LABS: Reflex Lactate Order REFLEX LACTIC ORDERD
[2020-05-03] MEDS: pantoprazole DR 40 mg Tablet PO (08:31)
[2020-05-03] MEDS: lisinopril 20 mg Tablet PO (08:31)
[2020-05-03] MEDS: dexamethasone 4 mg/mL INJ 6 MG IVP (08:32)
[2020-05-03] MEDS: zinc gluconate 50 mg Tablet PO (08:32)
[2020-05-03] MEDS: ascorbic acid 500 mg Tablet 1000 MG PO ×2 (08:32→17:22)
[2020-05-03] MEDS: albuterol 8 gm MDI 2 PUFF INHALATION ×2 (09:09→20:44)
--- NOTE | 2020-05-03 11:57 | P.PN_ITS ---
Subjective Subjective: Interval history: This morning patient was examined, he is sitting up in bed, no fevers, no chills, still having a cough, Vitals/I&O/Wt Last Vital Signs Temp 97.9 F 05/03/20 08:00 Pulse 66 05/03/20 11:00 Resp 18 05/03/20 11:00 BP 153/84 05/02/20 23:00 Pulse Ox 95 05/03/20 11:00 05/02/20 05/03/20 05/03/20 22:59 06:59 14:59 Intake Total 390 / 830 100 / 930 200 / 200 Output Total 300 / 2106 300 / 300 Balance 90 / -1276 100 / -1176 -100 / -100 Physical Exam Const: COMMON NORMALS: no acute distress and patient oriented x3 HENMT: COMMON NORMALS: normocephalic HEAD & SCALP: normocephalic Neck/C-Spine: COMMON NORMALS: no JVD Resp: COMMON NORMALS: normal respiratory effort, No retractions and No use of accessory muscles AUSCULTATION: crackles Cardio: COMMON NORMALS: no JVD, regular rate, regular rhythm, S1 normal heart sound present and S2 normal heart sound present RATE: regular rate RHYTHM: regular rhythm HEART SOUNDS: S1 normal heart sound present and S2 normal heart sound present GI: COMMON NORMALS: Normal to inspection, nondistended, normoactive bowel sounds present, Soft to palpation, non-tender, No hepatosplenomegaly present, no masses and no bruits PALPATION: Yes Soft to palpation and Yes No hepatosplenomegaly present Extremity: COMMON NORMALS: capillary refill normal, no clubbing, cyanosis or edema, no calf tenderness and no pedal edema Neuro: COMMON NORMALS: patient oriented x3 Psych: COMMON NORMALS: mental status grossly normal Data : 05/03/20 03:46 05/03/20 03:46 A&P Assessment and plan (1) Acute respiratory failure with hypoxia: -Secondary to COVID-19 pneumonia, concern for secondary bacterial pneumonia Admit to viral ICU -Full code -Full dose Lovenox, for hypercoagulability concerns -Decadron -Remdesivir -Azithromycin and Rocephin -Lasix as needed for fluid overload -Vitamin C and zinc -Monitor respiratory status closely -Physical therapy -Get up out of bed -Advair, albuterol Plan for today get up out of bed, ambulate, will finish off 5 days of remdesivir tomorrow, likely discharge thereafter Status: Acute (2) Pneumonia due to 2019 novel coronavirus: - Status: Acute (3) Diverticulosis: Status: Chronic (4) Secondary bacterial pneumonia: Status: Acute Additional A&P Information Plan for today is to get up out of bed, encourage oral hydration, wean oxygen, no Lasix for today Attestations Medical Necessity Statement*: Patient requires hospitalization for acute respiratory failure secondary COVID-19 Coding Level of Care Code Acute Shrink Pit Supervisor for [facility] Diagnoses Acute respiratory failure with hypoxia J96.01 Pneumonia due to 2019 novel coronavirus U07.1; J12.89 Diverticulosis K57.90 Secondary bacterial pneumonia J15.9
[2020-05-03] MEDS: cefTRIAXone 1,000 MG in sodium chloride 0.9% (plus) 50 ML 100 MG IV (15:08)
--- NOTE | 2020-05-03 16:00 | PC.SOCIAL ---
Pg 2 IMM Explained to pt's on Pg 2 IMM, via phone. No questions voiced. Signed,dated, & timed a copy for chart.
[2020-05-03] MEDS: azithromycin 500 MG in sodium chloride 0.9% 250 ML 250 MG IV (17:22)
--- NOTE | 2020-05-03 18:45 | PC.NURSE ---
Received report on patient from Cate SOFIA. Assume care at this time.
--- NOTE | 2020-05-03 20:18 | PC.NURSE ---
Received report on patient from Cate SOFIA. Assumed care at this time.
[2020-05-03] MEDS: benzonatate 100 mg Capsule PO (21:49)
[2020-05-03] MEDS: acetaminophen 325 mg Tablet 650 MG PO (21:49)
[2020-05-04] VITALS (11 sets, daily range): BP systolic 106–140; BP diastolic 65–98; PULSE 51–71; RESP 12–27; TEMP 36.6–37; O2SAT 89–97
--- NOTE | 2020-05-04 03:45 | PC.NURSE ---
Report given to Ioana SOFIA in [place]. Patient ready to go to room 270.
[2020-05-04] MEDS: enoxaparin 100 mg/mL Syringe SUBCUT (04:07)
--- NOTE | 2020-05-04 04:09 | PC.NURSE ---
Patient taken to Room 270 vial wheelchair by Swapna SOFIA. Belongings with patient.
[2020-05-04 06:59] LABS: Basophils % 0.1 %; Hematocrit 34.1 % (42.0-52.0); Hemoglobin 11.1 g/dL (11.7-16.6); Mean Corpuscular HGB Conc 32.6 g/dL (30.0-36.0); Mean Corpuscular Hemoglobin 31.9 pg (28.0-34.0); Mean Platelet Volume 8.9 fL (7.4-10.4); Monocytes # 0.3 10^3/uL (0.2-0.9); Neutrophils # 6.71 10^3/uL (1.8-7.7); Neutrophils % 81.9 %; Nucleated Red Blood Cells % 0 %; Platelet Count 395 10^3/cmm (130-400); Red Blood Count 3.48 10^6/uL (4.1-5.3); Red Cell Distribution Width 12.2 % (12.1-15.1); White Blood Count 8.2 10^3/uL (4.0-10.0)
--- NOTE | 2020-05-04 07:00 | XR_ITS ---
WS: [id number] Exam: XR chest 1V portable [id number] Date/Time of Exam: 05/04/2020 7:00 AM Reason For Exam: sob Comparison 04/30/2020. Increasing infiltrates throughout the left lung since previous study. There are also new mild infiltr ates in the mid and lower right lung zone. Normal cardiomediastinal structures and bony elements. Pro bable small hiatal hernia. No pleural effusions or pneumothorax. XR/XR chest 1V portable [id number] IMPRESSION: 1. Increasing infiltrates throughout the left lung. New infiltrates in the mid and lower right lung.
[2020-05-04 07:10] LABS: D Dimer 0.62 ug/mIFEU (0-0.59)
[2020-05-04 07:19] LABS: C Reactive Protein 12.9 mg/L (0.0-4.9); Magnesium 2.2 mg/dL (1.7-2.3); Phosphorus 3.4 mg/dL (2.5-4.5)
[2020-05-04 07:23] LABS: Alanine Aminotransferase 51 U/L (0-41); Albumin Level 3.3 g/dL (3.5-5.2); Alkaline Phosphatase 66 IU/L (40-130); Anion Gap 14.8 (5-19); Aspartate Amino Transferase 27 U/L (0-40); Blood Urea Nitrogen 25 mg/dL (8-23); Calcium 8.6 mg/dL (8.5-10.5); Carbon Dioxide 23 mmol/L (22-29); Chloride 104 mmol/L (98-107); Globulin 2.2 g/dL (1.3-4.6); Glucose 104 mg/dL (65-115); Osmolality Calculated 289 mOsm/kg (285-295); Potassium 4.8 mmol/L (3.5-5.1); Sodium 137 mmol/L (136-145); Total Bilirubin 0.2 mg/dL (0.15-1.2); Total Protein 5.5 g/dL (6.6-8.7)
[2020-05-04 07:26] LABS: NT Pro B Type Natriuretic Pept 888 pg/mL (0-125); Procalcitonin 0.07 ng/mL (0-0.5)
[2020-05-04] MEDS: pantoprazole DR 40 mg Tablet PO (08:14)
[2020-05-04] MEDS: zinc gluconate 50 mg Tablet PO (08:14)
[2020-05-04] MEDS: ascorbic acid 500 mg Tablet 1000 MG PO (08:14)
[2020-05-04] MEDS: lisinopril 20 mg Tablet PO (08:14)
[2020-05-04] MEDS: dexamethasone 4 mg/mL INJ 6 MG IVP (08:42)
[2020-05-04] MEDS: albuterol 8 gm MDI 2 PUFF INHALATION (08:59)
[2020-05-04] MEDS: FUROsemide 10 mg/mL SDV 4mL 40 MG IVP (11:34)
--- NOTE | 2020-05-04 11:34 | P.DS_ITS ---
Discharge Providers Date of Admission: 04/30/20 14:41 Date of Discharge: May 04, 2020 Attending Provider at Admission: Pancho Jones MD Attending Provider at Discharge: Pancho Jones MD Primary Care Provider: Linda Lara MD Diagnoses at Discharge Discharge Diagnosis (1) Acute respiratory failure with hypoxia: Status: Acute (2) Pneumonia due to 2019 novel coronavirus: Status: Acute (3) Diverticulosis: Status: Chronic (4) Secondary bacterial pneumonia: Status: Acute Reason for Visit Reason for Visit: COVID +/SOB Hospital Course Hospital Course This is a 74-year-old male with a past medical history of hypertension, who presents [facility] due to complaints of fatigue, malaise, shortness of breath Patient was admitted to [facility] viral ICU, for acute hypoxic respiratory failure secondary to COVID-19 pneumonia, viral pneumonitis, secondary bacterial pneumonia. Patient received Decadron, remdesivir, broad- spectrum antibiotic therapy, Advair, albuterol, vitamin C, zinc, aggressive pulmonary toilet, oxygen therapy. Patient clinically improved, also his cultures so far have been unremarkable, he was moved out of the viral ICU, to the general medical floors, weaned off oxygen, received as needed diuresis. On 05/04/2020 patient remained afebrile, white blood cell count 8.2, pro-Luiz 0.07, CRP 12.9, BNP 888, he was on room air, afebrile, normotensive, feeling quite well, his chest x-ray although showed increasing infiltrates throughout the left lung, and also new infiltrates mid and lower right lung. He has finished 5 days of remdesivir, 5 days of inpatient antibiotics. I advised patient that I prefer to keep him another 24 hours, after discussion of the risks and benefits, patient was eager to go home, patient voiced understanding, all questions answered, patient wanted to go home. I will discharge on 7 remaining days of Levaquin, steroid burst, 2 days of Lasix, Advair, albuterol, vitamin C, zinc, to socially isolate, hand wash, face mask, to hydrate well. Patient was advised that if he were to have recurrent fevers, chills, desaturations on pulse ox, shortness of breath, to come back to the emergency room. In terms of patients hypercoagulability prophylaxis, I have discharged the patient on Eliquis 2.5 mg twice daily for the next 3 months. I had a lengthy discussion with patient about the risks and benefits of anticoagulation, although there are currently there are no good studies about the benefits of anticoagulation in Covid 19 patients, what we see from the current literature is that there is an increased risk of hypercoagulability including DVTs, PEs, strokes, MIs for COVID-19 patients. Certainly the risks are increased risk of GI bleeds, bleeding, especially given his history of diverticulosis. After discussion of the risks and benefits, patient voiced understanding, all questions answered, agreed to proceed with anticoagulation. Patient was advised that if he were to have lightheadedness, dizziness bloody or black stools hemoptysis or hematemesis please come back to emergency room. Physical Exam Const: COMMON NORMALS: no acute distress and patient oriented x3 HENMT: COMMON NORMALS: normocephalic HEAD & SCALP: normocephalic Neck/C-Spine: COMMON NORMALS: no JVD Resp: COMMON NORMALS: normal respiratory effort, No retractions, No use of accessory muscles and clear to auscultation bilaterally AUSCULTATION: clear to auscultation bilaterally Cardio: COMMON NORMALS: no JVD, regular rate, regular rhythm, S1 normal heart sound present and S2 normal heart sound present RATE: regular rate RHYTHM: regular rhythm HEART SOUNDS: S1 normal heart sound present and S2 normal heart sound present GI: COMMON NORMALS: Normal to inspection, nondistended, normoactive bowel sounds present, Soft to palpation, non-tender, No hepatosplenomegaly present, no masses and no bruits PALPATION: Yes Soft to palpation and Yes No hepatosplenomegaly present Extremity: COMMON NORMALS: capillary refill normal, no clubbing, cyanosis or edema, no calf tenderness and no pedal edema Neuro: COMMON NORMALS: patient oriented x3 Psych: COMMON NORMALS: mental status grossly normal Discharge Data Data Completed and Pending: Completed Studies During Hospitalization Category Date Time Status CT angio chest PE protcl [id number] Stat Cat Scan 04/30/20 12:10 Completed XR chest 1V ozzy ble [id number] Routine Exams 05/04/20 07:00 Completed XR chest 1V ozzy ble [id number] Stat Exams 04/30/20 12:11 Completed CV echo complete* [id number] Routine Ultrasound 05/01/20 06:00 Completed Pending at discharge Category Date Time Status Blood Culture Sta t Lab 04/30/20 03:35 Results C Reactive Protei n AM LABS Lab 05/05/20 04:00 Ordered C Reactive Protei n AM LABS Lab 05/06/20 04:00 Ordered D Dimer AM LABS Lab 05/05/20 04:00 Ordered D Dimer AM LABS Lab 05/06/20 04:00 Ordered Magnesium AM LABS Lab 05/05/20 04:00 Ordered Magnesium AM LABS Lab 05/06/20 04:00 Ordered NT Pro B Type [place] riuretic Pept QAM Lab 05/05/20 06:00 Ordered NT Pro B Type [place] riuretic Pept QAM Lab 05/06/20 06:00 Ordered Phosphorus AM LAB S Lab 05/05/20 04:00 Ordered Phosphorus AM LAB S Lab 05/06/20 04:00 Ordered Procalcitonin AM LABS Lab 05/05/20 04:00 Ordered Procalcitonin AM LABS Lab 05/06/20 04:00 Ordered Labs from last 24 hours 05/04/20 05/04/20 05/04/20 06:20 06:20 06:20 WBC RBC Hgb Hct MCV MCH MCHC RDW Plt Count MPV Neut % (Auto) Lymph % (Auto) [place] % (Auto) Eos % (Auto) Baso % (Auto) Neut # (Auto) Lymph # (Auto) [place] # (Auto) Eos # (Auto) Baso # (Auto) Nucleated RBC % (a uto) Nucleated RBCs # D-Dimer 0.62 H Sodium Potassium Chloride Carbon Dioxide Anion Gap BUN Creatinine GFR Calculation Glucose Calculated Osmolal ity Calcium Phosphorus 3.4 Magnesium 2.2 Total Bilirubin AST ALT Alkaline Phosphata se C-Reactive Protein 12.9 H NT-Pro-B Natriuret Pep 888 H Total Protein Albumin Globulin Procalcitonin 0.07 05/04/20 05/04/20 06:20 06:20 WBC 8.2 RBC 3.48 L Hgb 11.1 L Hct 34.1 L MCV 98.0 H MCH 31.9 MCHC 32.6 RDW 12.2 Plt Count 395 MPV 8.9 Neut % (Auto) 81.9 Lymph % (Auto) 12.0 [place] % (Auto) 4.0 Eos % (Auto) 0.0 Baso % (Auto) 0.1 Neut # (Auto) 6.71 Lymph # (Auto) 1.0 [place] # (Auto) 0.3 Eos # (Auto) 0.0 Baso # (Auto) 0.0 Nucleated RBC % (a uto) 0 Nucleated RBCs # 0.0 D-Dimer Sodium 137 Potassium 4.8 Chloride 104 Carbon Dioxide 23 Anion Gap 14.8 BUN 25 H Creatinine 0.9 GFR Calculation Not Reportable Glucose 104 Calculated Osmolal ity 289 Calcium 8.6 Phosphorus Magnesium Total Bilirubin 0.2 AST 27 ALT 51 H Alkaline Phosphata se 66 C-Reactive Protein NT-Pro-B Natriuret Pep Total Protein 5.5 L Albumin 3.3 L Globulin 2.2 Procalcitonin Vitals: Last Vital Signs Temp 97.8 F 05/04/20 07:34 Pulse 71 05/04/20 09:05 Resp 18 05/04/20 09:05 BP 117/70 05/04/20 07:34 Pulse Ox 92 05/04/20 09:05 Discharge Plan Discharge Patient Disposition: Home Condition: Stable Prescriptions: New Ventolin HFA 90 mcg/actuation Hfa Aerosol Inhaler 2 puff inhalation Q4H.RESPIRATORY PRN (Reason: Wheezing) Qty: 18 RF: 0 Vitamin C 500 mg Tablet 1,000 mg PO BID 30 Days Qty: 120 RF: 0 benzonatate 100 mg Capsule 100 mg PO TID PRN (Reason: Cough) 15 Days Qty: 30 RF: 0 Advair Diskus 100-50 mcg/dose Blister With Device 1 ea inhalation BID.RESPIRATORY 30 Days Qty: 60 RF: 0 zinc gluconate 50 mg Tablet 50 mg PO DAILY 30 Days Qty: 30 RF: 0 pantoprazole 40 mg Tablet,Delayed Release (Dr/Ec) 40 mg PO DAILY 30 Days Qty: 30 RF: 0 levofloxacin 750 mg tablet 750 mg PO DAILY 7 Days Qty: 7 RF: 0 Lasix 20 mg tablet 20 mg PO DAILY 2 Days Qty: 2 RF: 0 prednisone 20 mg tablet 20 mg PO BID 5 Days Qty: 10 RF: 0 Eliquis 2.5 mg tablet 2.5 mg PO BID 30 Days Qty: 60 RF: 0 Continued lisinopril 20 mg tablet 20 mg PO DAILY RF: 0 montelukast 10 mg tablet 10 mg PO DAILY RF: 0 omeprazole 20 mg capsule,delayed release(DR/EC) 20 mg PO DAILY RF: 0 multivitamin Tablet 1 tab PO DAILY RF: 0 Tylenol Extra Strength 500 mg Tablet 1,000 mg PO PRN RF: 0 Vitamin D3 1 cap PO DAILY RF: 0 zinc 1 cap PO DAILY RF: 0 Discontinued aspirin 325 mg Tablet 325 mg PO DAILY PRN (Reason: unknown) RF: 0 Discharge Orders: Discharge Order (Routine); Ordered 05/04/20 Ordered By: Pancho Jones Referrals: Linda Lara MD [Primary Care Provider] - Discharge Diet: Cardiac Discharge Activity: Resume usual activity Patient Instructions: Benzonatate (By mouth), Furosemide (By mouth), Albuterol (By breathing), Prednisone (By mouth), Levofloxacin (By mouth), Pantoprazole (By mouth), Apixaban (By mouth), Pneumonia Stoplight, Pneumonia - Viral Activity Restrictions/Additional Instructions: -Monitor for fevers, chills, cough if worsening come back to the emergency room -Monitor your pulse ox daily, if oxygen saturations drop below 89% come back to the emergency room -I have discharged you on Eliquis for hypercoagulability prophylaxis, for the next 3 months, if any bloody or black stools, or bloody cough or bloody vomit come back to the emergency room -Please hydrate well -Continue to socially isolated, socially distance, hand wash, face mask until May 10 Discharge Attestations Time Spent in Discharge Care*: less than 30 min Quality Metrics Clinical Quality Measures During this hospital stay, did patient experience: None Coding Level of Care Code 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
--- NOTE | 2020-05-07 10:28 | PC.SOCIAL ---
Spoke with the patient on the phone about the discharge information they received spoke about signs and symptoms to watch for such as; blue lips or face, fever of 104 or higher, trouble breathing or catching breath, chest pain lasting longer than 5 minute, confusion or trouble waking up. We also spoke about ways to improve the immune system, these included; eating and drinking well, eating fruits and vegetables, lean meat, low fat dairy products, keeping up with immunizations such as flu/pneumonia/shingles shots, going to all appointments and follow ups, lessening and stress. We also spoke about ways to stop or prevent the spread of the COVID 19. These included; social distancing at all times, washing hands longer than 20 seconds with a good lather, sanitizing surfaces in home and in vehicle, masking up when possible and washing any cloth masks after use and allow them to dry completely before next use, sneezing or coughing into arm, restricting company or going out in public. We spoke a little about the benefits of plasma donation. He stated that he is interested and would like info. I will mail info to him. He stated he has an appointment tomorrow With Dr. Ju Wilde. He stated he is unhappy with her but is very grateful for Dr. Jones and claimed he saved his life and wanted to give him a Thank You Card. I was able to help with getting him a Thank You Card.
== END 2020-05-04 15:05 | disposition home or self-care (01) | DRG 177 ==
LOC: ER 14:28 → ICU 14:58 → MEDSURG 05-04 04:17
PROVIDERS: Admitting Provider Family Medicine; Emergency Provider Family Medicine; PCP Family Medicine; Visit Provider Family Medicine
DX: U07.1 COVID-19 (principal); J96.01 Acute respiratory failure with hypoxia; J12.89 Other viral pneumonia; J15.9 Unspecified bacterial pneumonia; K57.90 Diverticulosis of intestine, part unspecified, without perforation or abscess without bleeding; I10 Essential (primary) hypertension; N40.0 Benign prostatic hyperplasia without lower urinary tract symptoms; K21.9 Gastro-esophageal reflux disease without esophagitis; E78.5 Hyperlipidemia, unspecified; Z85.038 Personal history of other malignant neoplasm of large intestine; G62.9 Polyneuropathy, unspecified
CPT/HCPCS: 12345; 36415; 36600; 71045; 71275; 80051; 80053; 80061; 81003; 82330; 82550; 82728; 82805; 83036; 83605; 83735; 83880; 84100; 84145; 84443; 85025; 85378; 85384; 85610; 86140; 87040; 93005; 93306; 94640; 96372; 96375; 97110; 97165; 97530; 97535; 99283; J0456; J0696; J1100; J1650; J1940; J3535; J7050; Q9967

== ENCOUNTER 2020-08-30 08:57 | Outpatient (CLI) | payer MEDICARE, OTHER, SELFPAY ==
--- NOTE | 2020-08-30 09:03 | XR_ITS ---
WS: [id number] Right hip, AP and frog-leg views, 08/30/2020 Clinical Data: PAIN IN RIGHT HIP Comparison: Right hip, 06/05/2009. Findings: The right hip arthroplasty remains in good position. There is an orthopedic screw holding the acetabu lar cup in place. There is a circumferential wire around the femoral medullary component. No loosening is seen. The adjacent right hip shows no change. XR/XR hip RT 2-3V wo/w pel* [id number] Impression: No change in right hip arthroplasty.
--- NOTE | 2020-08-30 09:03 | XR_ITS ---
WS: [id number] Lumbar spine, 3 views, 08/30/2020 Clinical Data: PAIN IN RIGHT HIP Comparison: None. Findings: No compression fractures or subluxation is seen. There is disc space narrowing at L4-L5. Osteophyte f ormation from the lower thoracic vertebral bodies throughout all the lumbar vertebral bodies is seen. . The transverse processes and SI joints are normal. There is a arthroplasty cup in the right hip. XR/XR lumbar spine 2-3V* [id number] Impression: 1. 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 2. Degenerative disc narrowing at L4-L5.
== END 2020-08-30 08:58 | disposition home or self-care (01) ==
LOC: RADWPI 09:00
PROVIDERS: PCP Family Medicine; Visit Provider Family Medicine
DX: M25.551 Pain in right hip (principal); M47.816 Spondylosis without myelopathy or radiculopathy, lumbar region; Z96.642 Presence of left artificial hip joint
CPT/HCPCS: 72100; 73502

== ENCOUNTER 2021-03-26 09:50 | Outpatient (CLI) | payer MEDICARE, OTHER, SELFPAY ==
--- NOTE | 2021-03-26 09:58 | MR_ITS ---
WS: [id number] MRI CERVICAL SPINE NONCONTRAST TECHNIQUE: Sagittal T1, T2 and STIR imaging. Axial T2, gradient, and fiesta imaging. 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 FINDINGS: Normal cervical alignment. Cord signal is normal. Mild disc osteophyte complexes C3-C4 and C4-C5. C2-C3: Normal. C3-C4: Slight retrolisthesis. Disc osteophyte complex with endplate ridging. Mild central canal steno sis. Moderate bilateral bony foraminal narrowing. Mild facet arthropathy. C4-C5: Disc osteophyte complex with endplate ridging. Moderate central canal stenosis. Moderate bilat eral bony foraminal narrowing. Mild to moderate facet arthropathy worse in the left. C5-C6: Disc osteophyte complexes with endplate ridging. Moderate to severe bilateral bony foraminal n arrowing. Mild central canal stenosis. Mild facet arthropathy. C6-C7: Mild disc bulging with osteophytic ridging. Moderate to severe bilateral bony foraminal narrow ing. Spinal canal is patent. C7-T1: Mild disc bulging with osteophytic ridging. Mild left greater than right bony foraminal narrow ing. Spinal canal is patent. Visualized brain stem structures: Normal. Prevertebral soft tissues: Normal. MR/MR cervical spin wo con* [id number] IMPRESSION: 1. Normal cervical alignment. No high-grade central canal stenosis. 2. Mild central canal stenosis C3-C4. Mild to moderate central canal stenosis C4-C5. Mild central canal stenosis C5-C6. 3. Moderate to severe bony foraminal narrowing worse at bilateral C5-C6 and bi lateral C6-7. 4. Moderate bilateral bony foraminal narrowing C3-C4 and C4-C5. 5. Mild left C7-T1 bony foraminal narrowing.
== END 2021-03-26 09:51 | disposition home or self-care (01) ==
PROVIDERS: PCP Family Medicine; Visit Provider Family Medicine
DX: R29.898 Other symptoms and signs involving the musculoskeletal system (principal); M48.02 Spinal stenosis, cervical region
CPT/HCPCS: 72141

== ENCOUNTER → 2021-04-08 08:53 | Outpatient (BNVA) | payer MEDICARE, OTHER, SELFPAY | PROVIDERS: PCP Family Medicine; Referring Provider Family Medicine; Visit Provider Urology | DX: R97.20 Elevated prostate specific antigen [PSA] (principal); R39.89 Other symptoms and signs involving the genitourinary system; N40.1 Benign prostatic hyperplasia with lower urinary tract symptoms; K40.90 Unilateral inguinal hernia, without obstruction or gangrene, not specified as recurrent | CPT/HCPCS: 81003; 84153 ==

== ENCOUNTER → 2021-07-16 10:15 | Outpatient (BNVA) | payer MEDICARE, OTHER, SELFPAY | PROVIDERS: PCP Family Medicine; Visit Provider Urology | DX: R97.20 Elevated prostate specific antigen [PSA] (principal); N40.1 Benign prostatic hyperplasia with lower urinary tract symptoms; N13.8 Other obstructive and reflux uropathy | CPT/HCPCS: 81003; 84153 ==

== ENCOUNTER → 2021-09-11 10:01 | Outpatient (BNVA) | payer MEDICARE, OTHER, SELFPAY | PROVIDERS: PCP Family Medicine; Visit Provider Nurse Practitioner Family | DX: N40.1 Benign prostatic hyperplasia with lower urinary tract symptoms (principal); N13.8 Other obstructive and reflux uropathy | CPT/HCPCS: 81003 ==

== ENCOUNTER 2021-09-13 08:37 | Outpatient (CLI) | payer MEDICARE, OTHER, SELFPAY | END 2021-09-13 08:38 | disposition home or self-care (01) | LOC: LAB 08:41 | PROVIDERS: PCP Family Medicine; Visit Provider Urology | DX: R97.20 Elevated prostate specific antigen [PSA] (principal) | CPT/HCPCS: 81003; 84153 ==

== ENCOUNTER → 2021-09-24 08:14 | Outpatient (BNVA) | payer MEDICARE, OTHER, SELFPAY | PROVIDERS: PCP Family Medicine; Visit Provider Urology | DX: N40.1 Benign prostatic hyperplasia with lower urinary tract symptoms (principal); N13.8 Other obstructive and reflux uropathy | CPT/HCPCS: 81003 ==

== ENCOUNTER → 2021-10-01 10:50 | Outpatient (BNVA) | payer MEDICARE, OTHER, SELFPAY | PROVIDERS: PCP Family Medicine; Visit Provider Urology | DX: N40.1 Benign prostatic hyperplasia with lower urinary tract symptoms (principal); N13.8 Other obstructive and reflux uropathy | CPT/HCPCS: 81003 ==

== ENCOUNTER → 2021-10-07 12:03 | Outpatient (BNVA) | payer MEDICARE, OTHER, SELFPAY | PROVIDERS: PCP Family Medicine; Visit Provider Nurse Practitioner Family | DX: R30.0 Dysuria (principal); N40.1 Benign prostatic hyperplasia with lower urinary tract symptoms | CPT/HCPCS: 87086 ==

== ENCOUNTER → 2021-10-16 15:42 | Outpatient (BNVA) | payer MEDICARE, OTHER, SELFPAY | PROVIDERS: PCP Family Medicine; Visit Provider Nurse Practitioner Family | DX: N40.1 Benign prostatic hyperplasia with lower urinary tract symptoms (principal); R39.89 Other symptoms and signs involving the genitourinary system; R97.20 Elevated prostate specific antigen [PSA]; N41.9 Inflammatory disease of prostate, unspecified; R30.0 Dysuria | CPT/HCPCS: 51700; 99212; J0696; J1644; J1720; J3490 ==

== ENCOUNTER → 2021-10-23 10:51 | Outpatient (BNVA) | payer MEDICARE, OTHER, SELFPAY | PROVIDERS: PCP Family Medicine; Visit Provider Nurse Practitioner Family | DX: N40.1 Benign prostatic hyperplasia with lower urinary tract symptoms (principal); N41.9 Inflammatory disease of prostate, unspecified; R39.89 Other symptoms and signs involving the genitourinary system; R30.0 Dysuria | CPT/HCPCS: 51700; J0690; J1644; J1720; J3490 ==

== ENCOUNTER → 2021-10-31 10:19 | Outpatient (BNVA) | payer MEDICARE, OTHER, SELFPAY | PROVIDERS: PCP Family Medicine; Visit Provider Nurse Practitioner Family | DX: R39.89 Other symptoms and signs involving the genitourinary system (principal); N40.1 Benign prostatic hyperplasia with lower urinary tract symptoms; R30.0 Dysuria; N41.9 Inflammatory disease of prostate, unspecified | CPT/HCPCS: 51700; J0690; J1644; J1720; J3490 ==

== ENCOUNTER → 2021-11-07 10:07 | Outpatient (BNVA) | payer MEDICARE, OTHER, SELFPAY | PROVIDERS: PCP Family Medicine; Visit Provider Nurse Practitioner Family | DX: R39.89 Other symptoms and signs involving the genitourinary system (principal); N39.9 Disorder of urinary system, unspecified | CPT/HCPCS: J0690; J1644; J1720; J3490 ==

== ENCOUNTER → 2021-11-13 09:57 | Outpatient (BNVA) | payer MEDICARE, SELFPAY | PROVIDERS: PCP Family Medicine; Visit Provider Nurse Practitioner Family | DX: N40.1 Benign prostatic hyperplasia with lower urinary tract symptoms (principal); N41.9 Inflammatory disease of prostate, unspecified; R30.0 Dysuria; R39.89 Other symptoms and signs involving the genitourinary system | CPT/HCPCS: 51700; J0690; J1644; J1720; J3490 ==

== ENCOUNTER → 2021-11-28 10:10 | Outpatient (BNVA) | payer MEDICARE, OTHER, SELFPAY | PROVIDERS: PCP Family Medicine; Visit Provider Urology | DX: N40.1 Benign prostatic hyperplasia with lower urinary tract symptoms (principal) | CPT/HCPCS: 99213; J0690; J1644; J1720; J3490 ==

== ENCOUNTER → 2021-12-18 14:05 | Outpatient (BNVA) | payer MEDICARE, SELFPAY | PROVIDERS: PCP Family Medicine; Visit Provider Nurse Practitioner Family | DX: N40.1 Benign prostatic hyperplasia with lower urinary tract symptoms (principal); N30.10 Interstitial cystitis (chronic) without hematuria | CPT/HCPCS: 51700; 81003; J0690; J1644; J1720; J3490 ==

== ENCOUNTER → 2021-12-26 13:28 | Outpatient (BNVA) | payer MEDICARE, OTHER, SELFPAY | PROVIDERS: PCP Family Medicine; Visit Provider Surgery | DX: K40.90 Unilateral inguinal hernia, without obstruction or gangrene, not specified as recurrent (principal) | CPT/HCPCS: 99213 ==

== ENCOUNTER → 2022-01-01 14:18 | Outpatient (BNVA) | payer MEDICARE, OTHER, SELFPAY | PROVIDERS: PCP Family Medicine; Visit Provider Nurse Practitioner Family | DX: N30.10 Interstitial cystitis (chronic) without hematuria (principal) | CPT/HCPCS: 51700; J0690; J1644; J1720; J3490 ==

== ENCOUNTER → 2022-01-08 09:58 | Outpatient (BNVA) | payer MEDICARE, OTHER, SELFPAY | PROVIDERS: PCP Family Medicine; Visit Provider Nurse Practitioner Family | DX: N30.10 Interstitial cystitis (chronic) without hematuria (principal); N39.9 Disorder of urinary system, unspecified | CPT/HCPCS: 51700; 99024; J0690; J1644; J1720; J3490 ==

== ENCOUNTER → 2022-01-15 10:42 | Outpatient (BNVA) | payer MEDICARE, OTHER, SELFPAY | PROVIDERS: PCP Family Medicine; Visit Provider Nurse Practitioner Family | DX: N30.10 Interstitial cystitis (chronic) without hematuria (principal) | CPT/HCPCS: 51700; J0690; J1644; J1720; J3490 ==

== ENCOUNTER → 2022-01-22 10:30 | Outpatient (BNVA) | payer MEDICARE, OTHER, SELFPAY | PROVIDERS: PCP Family Medicine; Visit Provider Nurse Practitioner Family | DX: N30.10 Interstitial cystitis (chronic) without hematuria (principal) | CPT/HCPCS: 51700 ==

== ENCOUNTER 2022-01-28 06:42 | Day surgery (SDC) | payer MEDICARE, OTHER, SELFPAY ==
[2022-01-27 14:10] VITALS: BMI 34.4
[2022-01-28] VITALS (8 sets, daily range): BP systolic 134–161; BP diastolic 79–97; PULSE 58–73; RESP 10–18; TEMP 36.2–36.7; O2SAT 95–99
[2022-01-28] MEDS: sodium chloride 0.9% 1,000 ML 30 ML IV (07:34)
[2022-01-28] MEDS: acetaminophen 1,000 MG/100 ML PIGGYBACK 400 MG IV (07:34)
[2022-01-28] MEDS: heparin 5,000 unit/mL INJ 1 mL 2000 UNIT SUBCUT (07:37)
--- NOTE | 2022-01-28 07:45 | ANES.PREANE2 ---
Pre-Anesthetic Assessment Height/Weight: Height 1.78 m Weight 108.862 kg Temp Pulse Resp BP Pulse Ox O2 Del Method 98.0 F 65 18 161/88 95 01/28/22 07:18 01/28/22 07:18 01/28/22 07:18 01/28/22 07:18 01/28/22 07:18 01/28/22 07:18 Preop Diagnosis: Symptomatic right groin hernia Operation Date: 01/28/22 08:10 Proposed Procedures p open right inguinal hernia repair with mesh [id number], K46.9(Right) - Lupillo Burciaga MD Familial anesthetic complications: None Was Beta Bill taken within 24 hours: N/A Was Clonidine taken within 24 hours: N/A Last intake: Intake Last Liquid Date 01/27/22 Last Liquid Time 20:30 Last Solid Date 01/27/22 Last Solid Time 20:30 Social No alcohol and No tobacco Exam alert, oriented x 3, clear to auscultation bilaterally and regular rate & rhythm Airway Mallampati: Class III Dentition: full Pulmonary Chronic Obstructive Pulmonary Disease lung cancer CV/HEM Hypertension GI Gastroesophageal Reflux Disease Musc/skel Fibromyalgia Anesthetic Plan ASA status: 3 Anesthesia: General and Regional (specify below) Risk of > 500 ml blood loss (7ml/kg in children): No Medications/Allergies Home Medications Medication Instructions Recorded Confirmed Last Taken Type omeprazole 20 mg capsule,delayed 20 mg PO DAILY 02/22/20 01/28/22 01/27/22 History release Vitamin D3 1 cap PO DAILY 04/30/20 01/28/22 01/27/22 History zinc 1 cap PO DAILY 04/30/20 01/28/22 01/27/22 History finasteride 5 mg tablet 5 mg PO QDAY #90 tabs 04/08/21 01/28/22 01/27/22 Rx ascorbate calcium (vitamin C) 500 500 mg PO DAILY 07/16/21 01/28/22 01/27/22 History mg tablet tamsulosin 0.4 mg capsule 0.4 mg PO BID #60 caps 07/25/21 01/28/22 01/27/22 Rx oxybutynin chloride 5 mg tablet 5 mg PO DAILY #60 tabs 09/24/21 01/28/22 01/27/22 Rx doxycycline hyclate 100 mg capsule 100 mg PO BID 01/27/22 01/28/22 01/27/22 History Allergies Allergy/AdvReac Type Severity Reaction Status Date / Time No Known Allergies Allergy Verified 01/22/22 11:11 Current Medications Generic Name Dose Route Start Last Admin Trade Name Mckinley PRN Reason Stop Dose Admin Sodium Chloride 1,000 mls @ 30 mls/hr 01/28/22 07:00 01/28/22 07:34 Sodium Chloride 0.9% IV 01/29/22 06:59 30 mls/hr .Q24H THERON Administration PFSH Anesthesia Medical History Abnormal prostate exam Bladder pain BPH (benign prostatic hyperplasia) BPH loc w urin obs/LUTS Elevated PSA GERD (gastroesophageal reflux disease) History of colon cancer Hyperlipidemia Hypertension Peripheral neuropathy Right inguinal hernia Surgical History History of appendectomy [facility] [place] History of colonoscopy with polypectomy (12/2018) History of hip replacement, total History of partial colectomy (~01/2019) DR. CAMPBELL ECRU Family History Mother , AT 72 Stroke Father , AT 62 CAD (coronary artery disease) Social History Smoking and tobacco status: never smoked Alcohol intake: never Marital status: Current occupational status: retired History of recent travel: No Jyoti/Nondenominational: [employer] Data Anesthesia Cardiac Studies: Echocardiogram Ultrasound 05/01/20
--- NOTE | 2022-01-28 07:55 | P.HP_ITS ---
Same Day Surgery H&P Indication for Procedure/HPI DATE OF PROCEDURE: January 28, 2022 CHIEF COMPLAINT/INDICATIONFOR SURGICAL PROCEDURE: Right groin hernia PREOP DIAGNOSIS: Symptomatic right groin hernia PLANNED PROCEDURE: Operation Date: 01/28/22 08:10 Proposed Procedures p open right inguinal hernia repair with mesh [id number], K46.9(Right) - Lupillo silva MD 12/26/2021 This is a pleasant 76 years old gentleman well-known to me from previous clinical encounter.? He was today with right groin discomfort and he was diagnosed by right groin hernia by urology service.? Patient was referred to me for further evaluation as he has been encountering intermittent discomfort may interfere with his daily life activities.? Denies any nausea vomiting fevers or chills or bowel obstruction. Interim history 01/28/2022 Patient comes today for elective right open hernia repair ROS All systems have been reviewed negative except as for the above or per problem list. Medications/Allergies* Home Medications Medication Instructions Recorded Confirmed Type omeprazole 20 mg capsule,delayed 20 mg PO DAILY 02/22/20 01/28/22 History release Vitamin D3 1 cap PO DAILY 04/30/20 01/28/22 History zinc 1 cap PO DAILY 04/30/20 01/28/22 History ascorbate calcium (vitamin C) 500 500 mg PO DAILY 07/16/21 01/28/22 History mg tablet doxycycline hyclate 100 mg capsule 100 mg PO BID 01/27/22 01/28/22 History Allergies/Adverse Reactions Allergy/AdvReac Type Severity Reaction Status Date / Time No Known Allergies Allergy Verified 01/28/22 07:56 Current Medications: Generic Name Dose Route Start Last Admin Trade Name Freq PRN Reason Stop Dose Admin Sodium Chloride 1,000 mls @ 30 mls/hr 01/28/22 07:00 01/28/22 07:34 Sodium Chloride 0.9% IV 01/29/22 06:59 30 mls/hr .Q24H THERON Administration Pertinent History/Comorbid Conditions* Medical History (Updated 11/28/21 @ 12:09 by Vicente Tenorio MD) Abnormal prostate exam Bladder pain BPH (benign prostatic hyperplasia) BPH loc w urin obs/LUTS Elevated PSA GERD (gastroesophageal reflux disease) History of colon cancer Hyperlipidemia Hypertension Peripheral neuropathy Right inguinal hernia Surgical History (Updated 04/30/20 @ 15:31 by Pancho Jones MD) History of appendectomy History of colonoscopy (~03/2020) [facility] History of colonoscopy with polypectomy (12/2018) History of hip replacement, total History of partial colectomy (~01/2019) DR. CAMPBELL [place] Family History (Updated 04/30/20 @ 15:31 by Pancho Jones MD) Father, AT 62 Mother, AT 72 CAD (coronary artery disease) Father Stroke Mother Social History Smoking and tobacco status: never smoked Alcohol intake: never Marital status: Current occupational status: retired History of recent travel: No Jyoti/Yazidism: Nondenominational Pertinent Exam Findings alert, oriented x 3, clear to auscultation bilaterally, regular rate & rhythm, operative site marked and procedure specific exam findings (Right groin hernia reducible) Recommendations Surgery/Procedure today (Open right inguinal hernia repair with mesh placement) 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
[2022-01-28] MEDS: ceFAZolin 2,000 MG in sodium chloride 0.9% (plus) 50 ML 100 MG IV (08:21)
--- NOTE | 2022-01-28 09:38 | PM.OP ---
Operative Report Date of procedure: January 28, 2022 Pre-op diagnosis: Preop Diagnosis Symptomatic right groin hernia Post-op diagnosis: Large right indirect hernia Post-op findings: The same Procedure done: 1-Open inguinal hernia repair with mesh placement 2-Excision of lipoma of the cord Specimens removed/disposition: Lipoma of the cord Surgeon: Lupillo Burciaga MD Gate Supervisor: Surgical fortino Robertson Circulating nurse Izzy Anesthesia: General (TREVA Felix) Estimated blood loss (mL): 10 IV fluids (mL): 900 Procedure: Patient was identified in the holding area and right groin was marked by myself ,patient was taken to the operating room where he was placed in supine position, antibiotic was given with induction, endotracheal tube was placed per anesthesia, Weston catheter was inserted by the circulating nurse revealing clear urine, prep and drape of both groins and lower abdomen and scrotum including the genitalia was done under the usual sterile technique. Time-out was done verifying the patient's name/date of /planned procedure destination after the procedure, all were in agreement. SCDs confirmed to be functioning, preoperative antibiotics administered per protocol, and beta juan c protocol was confirmed. I started with a right groin incision 1-1/2 finger above the inguinal ligament towards the pubic tubercle, used 15 blade knife skin incision , continued to dissect using Bovie to subcutaneous, Sergio's fascia down to the external oblique aponeurosis, large right direct inguinal hernia was identified, external oblique aponeurosis was then incised using a 10 blade knife, after application of 2 hemostats across sides of the fascia and opened it, right ileo-inguinal nerve was safeguard, I managed to dissect and deliver the spermatic cord out of the wound, and placed a Conway drain for traction and countertraction, I dissected the spermatic cord and the vas deferens is identified and safeguarded ,as I identified a right inguinal hernia the direct component was dissected and freed and I decided at this point to perform a plication of the attenuated fascia transversalis using running 2-0 silk suture. I was able to identify a medium size lipoma of the cord that was dissected and transfixing stitch was applied at the base, there was no evidence of indirect hernia component. Attention was now deviated to mesh placement , using polypropylene mesh system was applied tension-free(X- large size), a cone was applied at the deep inguinal ring stabilized by 2 Prolene sutures 3/0, then a sheet of mesh was applied onto the floor of the posterior wall of the right inguinal canal and anchored medially to the pubic tubercle then inferiorly to the underlying surface of the inguinal ligament and superiorly to the internal oblique aponeurosis using silk sutures 2/0, both limbs of the mesh encircled the exit of the cord at the deep inguinal ring, and stitched down. The cord maintained to be in good position and closure of the external oblique aponeurosis was done by O -Vicryl, followed by approximation of Sergio's fascia by 3-0 Vicryl then 4/0 Monocryl to close the skin, dressing was then applied in the form of Dermabond. Counts of instruments, sponges and needles were completed at the end of the procedure. Scrotal support was then placed Patient tolerated the procedure well and was taken to the recovery area after extubation I was present for the whole entire procedure
[2022-01-28] MEDS: HYDROcodone-acetaminophen 5-325 mg Tablet 1 TAB PO (11:04)
--- NOTE | 2022-01-28 13:23 | ANE.PACU2 ---
Inpatient post-anesthesia follow up: Airway intact: Yes Vital signs: Temperature 97.2 F Pulse Rate 58 Respiratory Rate 18 Blood Pressure 134/82 Pulse Oximetry 99 Oxygen Delivery Me thod Room Air Oxygen Flow Rate 6 Fraction of Inspir ed Oxygen Hydration adequate: Yes Nausea and vomiting: No Pain level: 1 Mental status: Baseline
== END 2022-01-28 13:36 | disposition home or self-care (01) ==
PROVIDERS: PCP Family Medicine; Visit Provider Surgery
PROC: (CPT 49505; principal; 2022-01-28 08:10)
DX: K40.90 Unilateral inguinal hernia, without obstruction or gangrene, not specified as recurrent (principal); D17.6 Benign lipomatous neoplasm of spermatic cord; J44.9 Chronic obstructive pulmonary disease, unspecified; Z85.118 Personal history of other malignant neoplasm of bronchus and lung; I10 Essential (primary) hypertension; K21.9 Gastro-esophageal reflux disease without esophagitis; M79.7 Fibromyalgia; N40.1 Benign prostatic hyperplasia with lower urinary tract symptoms; N13.8 Other obstructive and reflux uropathy; E78.5 Hyperlipidemia, unspecified; Z85.038 Personal history of other malignant neoplasm of large intestine
CPT/HCPCS: 49505; 88304; J1100; J1644; J2405; J2704; J2710; J3010; J3490; J7030

== ENCOUNTER → 2022-02-05 13:17 | Outpatient (BNVA) | payer MEDICARE, OTHER, SELFPAY | PROVIDERS: PCP Family Medicine; Visit Provider Nurse Practitioner Family | DX: N30.10 Interstitial cystitis (chronic) without hematuria (principal); Z09 Encounter for follow-up examination after completed treatment for conditions other than malignant neoplasm | CPT/HCPCS: 51700; 99024; 99213; J1580; J1644; J1720; J3490 ==

== ENCOUNTER → 2022-02-20 12:37 | Outpatient (BNVA) | payer MEDICARE, SELFPAY | PROVIDERS: PCP Family Medicine; Visit Provider Urology | DX: N30.10 Interstitial cystitis (chronic) without hematuria (principal) | CPT/HCPCS: 51700; 81003; 99213; J1580; J1644; J1720; J3490 ==

== ENCOUNTER → 2022-02-26 11:06 | Outpatient (BNVA) | payer MEDICARE, OTHER, SELFPAY | PROVIDERS: PCP Family Medicine; Visit Provider Nurse Practitioner Family | DX: N30.10 Interstitial cystitis (chronic) without hematuria (principal) | CPT/HCPCS: 51700; 99212; J1580; J1644; J1720; J3490 ==

== ENCOUNTER → 2022-03-05 12:19 | Outpatient (BNVA) | payer MEDICARE, OTHER, SELFPAY | PROVIDERS: PCP Family Medicine; Visit Provider Nurse Practitioner Family | DX: N30.10 Interstitial cystitis (chronic) without hematuria (principal) | CPT/HCPCS: 51700; J1580; J1644; J1720; J3490 ==

== ENCOUNTER 2022-03-11 13:06 | Outpatient (CLI) | payer MEDICARE, OTHER, SELFPAY | END 2022-03-11 13:07 | disposition home or self-care (01) | LOC: LAB 13:09 | PROVIDERS: PCP Family Medicine; Visit Provider Urology | DX: R97.20 Elevated prostate specific antigen [PSA] (principal); N30.10 Interstitial cystitis (chronic) without hematuria; N40.1 Benign prostatic hyperplasia with lower urinary tract symptoms; F41.9 Anxiety disorder, unspecified; R39.89 Other symptoms and signs involving the genitourinary system; R35.1 Nocturia; R33.9 Retention of urine, unspecified | CPT/HCPCS: 36415; 51700; 84153; 99214; J1580; J1644; J1720; J3490 ==

== ENCOUNTER → 2022-03-19 11:21 | Outpatient (BNVA) | payer MEDICARE, OTHER, SELFPAY | PROVIDERS: PCP Family Medicine; Visit Provider Surgery | DX: Z90.49 Acquired absence of other specified parts of digestive tract (principal); K40.90 Unilateral inguinal hernia, without obstruction or gangrene, not specified as recurrent; Z98.890 Other specified postprocedural states | CPT/HCPCS: 99024 ==

== ENCOUNTER → 2022-03-20 10:48 | Outpatient (BNVA) | payer MEDICARE, OTHER, SELFPAY | PROVIDERS: PCP Family Medicine; Visit Provider Urology | DX: N30.10 Interstitial cystitis (chronic) without hematuria (principal) | CPT/HCPCS: 51700; J1580; J1644; J1720; J3490 ==

== ENCOUNTER → 2022-03-28 11:31 | Outpatient (BNVA) | payer MEDICARE, OTHER, SELFPAY | PROVIDERS: PCP Family Medicine; Visit Provider Urology | DX: N30.10 Interstitial cystitis (chronic) without hematuria (principal); R97.20 Elevated prostate specific antigen [PSA]; R39.89 Other symptoms and signs involving the genitourinary system | CPT/HCPCS: 99214 ==

== ENCOUNTER 2022-04-02 05:40 | Day surgery (SDC) | payer MEDICARE, OTHER, SELFPAY ==
[2022-04-02] VITALS (9 sets, daily range): BP systolic 107–169; BP diastolic 60–96; PULSE 69–84; RESP 9–18; TEMP 36.1–36.2; O2SAT 95–98
--- NOTE | 2022-04-02 05:54 | W.PM.OPSUD ---
Surgery/Procedure H&P Update DATE OF PROCEDURE: April 02, 2022 DATE H&P PERFORMED: 03/28/22 H&P UPDATE INFORMATION: I have reviewed H&P completed within last 30 days, I have examined patient prior to procedure, No changes to prior documentation and [place] [facility] [place] indicated CHANGES TO PREVIOUS DOCUMENTATION: Good review again of procedure, expectations, perioperative limitations, reasons to call etc. PREOP DIAGNOSIS: 1. Abnormal PSA/prostate MRI 2. Chronic interstitial cystitis PLANNED PROCEDURE: Operation Date: 04/02/22 07:10 Proposed Procedures s Transrectal Ultrasound/ Biopsy of prostate, Cystoscopy hydrodistension bladder [id number],01010,R97.2,N41.9(Not Applicable) - Vicente Tenorio MD p Transrectal Ultrasound/ Biopsy of prostate, Cystoscopy hydrodistension bladder [id number],66171,R97.2,N41.9(Not Applicable) - Vicente Tenorio MD s Cystoscopy(Not Applicable) - Vicente Tenorio MD
[2022-04-02] MEDS: sodium chloride 0.9% 1,000 ML 30 ML IV (06:30)
--- NOTE | 2022-04-02 06:48 | P.OP_ITS ---
Operative Report Date of procedure: April 02, 2022 Pre-op diagnosis: 1. Abnormal PSA/prostate MRI 2. Chronic interstitial cystitis Post-op diagnosis: 1. Abnormal PSA/prostate MRI 2. Chronic interstitial cystitis Procedure done: 1. Transrectal ultrasound of the prostate with biopsy 2. Hydrodistention of bladder with bladder instillation Implants: None Specimens removed/disposition: Prostate biopsies Pathology: Prostate biopsies Surgeon: Jona Estimated blood loss: Minimum Urine output: Not measured Complications: None Findings: Anesthesia: General Condition: Stable Disposition: PACU Intraoperative findings: * Ultrasound findings: * Number of cores taken: * Anesthetic capacity #1: 540 cc * Anesthetic capacity #2: 600 cc Brief History: Mr. Galeas is a very pleasant 76-year-old white male with history of elevated PSA and initially presented with symptoms suspicious for chronic prostatitis. Initially had good response to antibiotic therapy but this did not last. Over time was treated for symptoms that now appear more consistent with interstitial cystitis with some significant benefit initially but again over time less effective. Follow-up PSA was persistently elevated and a 3T MRI was performed that showed PI-RADS 5 characterization of the prostatic tissue and what appeared to be a fairly large volume. He is admitted to outpatient surgery for TRUS/biopsy as well as hydrodistention of the bladder under the same anesthesia. See H&P for full details. Procedure: After routine preoperative evaluation examination and obtaining of informed consent he was taken to the operating suite on 04/02/2022 where general anesthesia was administered without difficulty after appropriate timeout was performed, SCDs confirmed to be functioning, preoperative antibiotics administered, beta-juan c protocol confirmed. Positioned in left lateral decubitus position for the biopsy. JUAN was performed confirming induration around the apex. Ultrasound probe was placed into the rectum and the prostate volume was assessed. The prostate was then biopsied in template fashion from right lateral to right to the left lateral to the left with a total of 12 cores obtained. Good samples from each biopsy were confirmed. There is no detectable bleeding. Transperineal pressure was held for couple minutes. Lack of bleeding was confirmed in the biopsy portion was completed. Patient was then repositioned in dorsolithotomy position pain careful attention to avoiding pressure points. Prepped and draped in usual sterile fashion. 21 Beninese cystoscope with 30 degree lens was introduced into the urethra meatus and advanced into the bladder without difficulty. Bladder was systematically examined with 30 and 70 degree lenses. No gross pathology was identified The bladder was then hydrodistended x2 for about 5 minutes each time. Pressure height was 50 cm of water See above data. The bladder was drained and bladder instillation with lidocaine, Marcaine, heparin, Solu-Cortef, 80 mg gentamicin performed and left in the bladder at the completion of the procedure Procedure was completed. He was awakened in the operating room and returned to the cover room in stable condition. Tolerated the procedure well without complications. PLANS: 1. Anticipate discharge from outpatient surgery 2. We will follow-up over the phone early next week to review the pathology report. Staging studies as appropriate
--- NOTE | 2022-04-02 06:50 | ANES.PREANE2 ---
Pre-Anesthetic Assessment Height/Weight: Height 1.78 m Weight 106.594 kg Temp Pulse Resp BP Pulse Ox O2 Del Method 97.1 F L 71 18 169/96 98 04/02/22 06:23 04/02/22 06:23 04/02/22 06:23 04/02/22 06:23 04/02/22 06:23 04/02/22 06:21 Preop Diagnosis: 1. Abnormal PSA/prostate MRI 2. Chronic interstitial cystitis Operation Date: 04/02/22 07:10 Proposed Procedures s Transrectal Ultrasound/ Biopsy of prostate, Cystoscopy hydrodistension bladder [id number],R97.2,N41.9(Not Applicable) - Viecnte Tenorio MD p Transrectal Ultrasound/ Biopsy of prostate, Cystoscopy hydrodistension bladder [id number],82426,R97.2,N41.9(Not Applicable) - Vicente Tenorio MD s Cystoscopy(Not Applicable) - Vicente Tenorio MD Familial anesthetic complications: None Was Beta Bill taken within 24 hours: N/A Was Clonidine taken within 24 hours: N/A Last intake: Intake Last Liquid Date 04/01/22 Last Liquid Time 20:30 Last Solid Date 04/01/22 Last Solid Time 18:30 Social No alcohol and No tobacco Exam alert, oriented x 3, clear to auscultation bilaterally and regular rate & rhythm Airway Mallampati: Class III Dentition: full Pulmonary Chronic Obstructive Pulmonary Disease Lung cancer CV/HEM Hypertension GI Gastroesophageal Reflux Disease [facility] Fibromyalgia Anesthetic Plan ASA status: 3 Anesthesia: General Risk of > 500 ml blood loss (7ml/kg in children): No Medications/Allergies Home Medications Medication Instructions Recorded Confirmed Last Taken Type omeprazole 20 mg capsule,delayed 20 mg PO DAILY 02/22/20 04/02/22 04/01/22 History release ascorbate calcium (vitamin C) 500 500 mg PO DAILY 07/16/21 04/02/22 04/01/22 History mg tablet amitriptyline 25 mg tablet 25 mg PO .at bedtime #30 tabs 02/05/22 04/02/22 04/01/22 Rx hydrocodone 5 mg-acetaminophen 325 1 tab PO Q6H PRN pain 7 days #28 02/05/22 04/02/22 Unknown Rx mg tablet tabs doxycycline hyclate 100 mg capsule 100 mg PO BID #60 caps 03/06/22 04/02/22 04/01/22 Rx finasteride 5 mg tablet (Proscar) 5 mg PO QDAY 04/01/22 04/02/22 04/01/22 History tamsulosin 0.4 mg capsule (Flomax) 0.4 mg PO BID 04/01/22 04/02/22 04/02/22 History Allergies Allergy/AdvReac Type Severity Reaction Status Date / Time No Known Allergies Allergy Verified 03/28/22 11:47 [facility] Anesthesia Medical History Abnormal prostate exam Bladder pain BPH (benign prostatic hyperplasia) BPH loc w urin obs/LUTS Elevated PSA GERD (gastroesophageal reflux disease) History of colon cancer Hyperlipidemia Hypertension Peripheral neuropathy Right inguinal hernia Surgical History History of appendectomy History of colonoscopy (~03/2020) dr[facility] [place] [place] History of colonoscopy with polypectomy (12/2018) History of hip replacement, total History of inguinal hernia repair History of partial colectomy (~01/2019) DR. CAMPBELL [place] Family History Mother , AT 72 Stroke Father , AT 62 CAD (coronary artery disease) Social History Smoking and tobacco status: never smoked Alcohol intake: never Marital status: Current occupational status: retired History of recent travel: No Jyoti/Nondenominational: Confucianism Data Anesthesia Cardiac Studies: Echocardiogram Ultrasound 05/01/20
[2022-04-02] MEDS: levofloxacin-dextrose 5 % 500 MG/100 ML PREMIX 100 MG IV (07:00)
[2022-04-02] MEDS: triamcinolone 40 mg/mL SDV INJECTION (07:48)
[2022-04-02] MEDS: heparin, porcine 1,000 unit/mL INJ 10 mL 10000 UNIT IRRIGATION (07:48)
--- NOTE | 2022-04-02 13:55 | ANE.PACU2 ---
Inpatient post-anesthesia follow up: Airway intact: Yes Vital signs: Temperature 97.1 F Pulse Rate 74 Respiratory Rate 16 Blood Pressure 126/79 Pulse Oximetry 96 Oxygen Delivery Me thod Room Air Oxygen Flow Rate 6 Fraction of Inspir ed Oxygen Hydration adequate: Yes Nausea and vomiting: No Pain level: 1 Mental status: Baseline
== END 2022-04-02 09:15 | disposition home or self-care (01) ==
PROVIDERS: PCP Family Medicine; Visit Provider Urology
PROC: 0T7B7ZZ Dilation of Bladder, Via Natural or Artificial Opening (ICD-10-PCS; CPT 52260; principal; 2022-04-02 07:00)
PROC: 0VB03ZX Excision of Prostate, Percutaneous Approach, Diagnostic (ICD-10-PCS; CPT 76942; 2022-04-02 07:00)
PROC: 0TJB8ZZ Inspection of Bladder, Via Natural or Artificial Opening Endoscopic (ICD-10-PCS; CPT 52000; 2022-04-02 07:00)
DX: C61 Malignant neoplasm of prostate (principal); N41.9 Inflammatory disease of prostate, unspecified; R97.20 Elevated prostate specific antigen [PSA]; J44.9 Chronic obstructive pulmonary disease, unspecified; I10 Essential (primary) hypertension; K21.9 Gastro-esophageal reflux disease without esophagitis; M79.7 Fibromyalgia; Z85.118 Personal history of other malignant neoplasm of bronchus and lung; N40.1 Benign prostatic hyperplasia with lower urinary tract symptoms; N13.8 Other obstructive and reflux uropathy; Z85.038 Personal history of other malignant neoplasm of large intestine
CPT/HCPCS: 52260; 55700; 88305; J1644; J1956; J2405; J2704; J2710; J3010; J3301; J3490; J7030

== ENCOUNTER 2022-04-16 08:39 | Outpatient (CLI) | payer MEDICARE, OTHER, SELFPAY ==
--- NOTE | 2022-04-16 08:50 | NM_ITS ---
WS: [id number] NUCLEAR MEDICINE BONE SCAN Radiopharmaceutical: 24.1 Tc-99m MDP mCi IV Injection site: Antecubital Postinjection imaging delay: 1 hr CLINICAL INFORMATION: prostate cancer COMPARISON: None. FINDINGS: Bone lesions: There are no osseous lesions suspicious for metastatic disease. Soft tissue contours: Normal. Kidneys: Normal. Other findings: Degenerative type uptake both AC joints and both knees. NM/NM bone scan whole body* [id number] IMPRESSION: No evidence of osseous metastatic disease.
[2022-04-16 09:39] LABS: Blood Urea Nitrogen 21 mg/dL (8-23)
[2022-04-16] MEDS: iohexol 350 mg/mL 500 mL Btl (per mL) IV (09:53)
--- NOTE | 2022-04-16 13:30 | CT_ITS ---
WS: [id number] CT ABDOMEN PELVIS TECHNIQUE: Noncontrast CT of the abdomen and contrast-enhanced CT of the abdomen and pelvis with kenny nal and sagittal reformatted images. CLINICAL INFORMATION: PROSTATE CANCER COMPARISON: CT 7 18,019 DLP: 2698.[address] scans at [facility] use at least one of these dose optimization techniques: automated e xposure control; mA and/or kV adjustment per patient size (includes targeted exams where dose is matc hed to clinical indication); or iterative reconstruction. FINDINGS: Slight bibasilar atelectasis. Diffuse fatty infiltration liver. Normal gallbladder. Portal vein and s plenic vein. Mild fatty atrophy of the pancreas. Normal spleen. Normal GE junction. Adrenal glands ar e normal. Normal renal parenchymal enhancement. No hydronephrosis. Mild bilateral renal cortical atro phy. Small LEFT renal cyst. Tiny RIGHT renal cysts. No obstructing renal or ureteral calculi. Normal excretion on the delayed images. Images in the pelvis are degraded due to beam hardening artifact from RIGHT LETICIA. Small bladder cystoc cinthya. Heterogeneous enhancing enlarged prostate measuring 5.1 CM. Normal sigmoid colon. Sigmoid diverticulosis. Prior appendectomy. No evidence of large or small bowel obstruction. Tiny fat-containing umbilical hernia. Celiac and SMA are patent. Normal caliber abdominal aorta. No abdominal or pelvic lymphadenopathy. No inguinal lymphadenopathy. Evidence of RIGHT inguinal hernia repair. No suspicious bony lesions. CT/CT abdomen pelvis wo/w [address]86 IMPRESSION: 1. Heterogeneously enhancing enlarged nodular prostate measuring 5.1 CM. Image s in the pelvis degraded due to beam hardening artifact RIGHT LETICIA. 2. No adenopathy in the abdomen or pelvis. 3. Normal renal parenchymal enhancement. No hydronephrosis. Normal excretion o n the delayed images. 4. Hepatomegaly with mild diffuse fatty infiltration. 5. Prior appendectomy. 6. Evidence of RIGHT inguinal hernia repair. Postoperative changes in the RIGH T lower pelvis and groin. 7. No bony lesions suspicious for metastatic disease.
== END 2022-04-16 08:40 | disposition home or self-care (01) ==
LOC: NM 08:43
PROVIDERS: PCP Family Medicine; Visit Provider Urology
DX: C61 Malignant neoplasm of prostate (principal); K40.90 Unilateral inguinal hernia, without obstruction or gangrene, not specified as recurrent
CPT/HCPCS: 74178; 78306; 82565; 84520; A9561; Q9967

== ENCOUNTER → 2022-04-18 11:43 | Outpatient (BNVA) | payer MEDICARE, OTHER, SELFPAY | PROVIDERS: PCP Family Medicine; Visit Provider Urology | DX: C61 Malignant neoplasm of prostate (principal); N30.10 Interstitial cystitis (chronic) without hematuria | CPT/HCPCS: 99214 ==

== ENCOUNTER 2022-05-01 07:55 | Oncology outpatient (recurring) (ONCR) | payer MEDICARE, OTHER, SELFPAY ==
--- NOTE | 2022-05-01 10:12 | N.ONRAD NP_ITS ---
Radiation Oncology Consultation Patient Name: Adama Galeas Date of : 1945 Date of Service: 05/01/2022 Attending Physician: Tez Aguilar M.D. Adama Galeas was seen in consultation this afternoon at the request of the Vicente Tenorio M.D. for consideration of prostate radiotherapy in the management of a recently diagnosed very high-risk prostate cancer. He initially was identified to have an elevated PSA level (11.3 ng/mL) in August of 2020. He initially declined a biopsy. A repeat PSA obtained in March of 2021 was 12.5 ng/mL. A biopsy was recommended but the patient refused. He continued close follow-up and management for progressive lower urinary tract symptoms. A PSA level on March 11, 2022 was 12.6 ng/mL. An MRI of the prostate (requested from the outside hospital and personally reviewed in [facility]) ordered on March 26, 2022 revealed a 4 cm x 5 cm x 5.4 cm prostate gland. Diffuse abnormal signal intensity with restricted diffusion and enhancement involving the prostate gland. The prostatic capsule was lobulated with abnormal signal in the base of the left seminal vesicle consistent with extraprostatic extension. A transrectal ultrasound of the prostate with biopsy was performed on April 02, 2022. Biopsies diagnosed an adenocarcinoma with a Daron score of 5+5 (grade group 5) involving all of the cores submitted. Perineural invasion and josette-prostatic fat invasion were described. A nuclear bone scintigraphy and abdominopelvic CT scan did not demonstrate metastatic disease. The patient was referred for radiotherapy treatment options. I discussed with Mr. Galeas the [place] joint commission on cancer for prostate cancer and specifically the patient's clinical IIIC (T3bN0) very high-risk prostate cancer and the National Comprehensive Cancer Network Guidelines recommending androgen deprivation therapy, external beam radiotherapy with or without brachytherapy and consideration for adjuvant chemotherapy. The admonition by the NCCN was established by the RTOG 0521 trial that enrolled patients with high-risk non-metastatic prostate cancer to receive androgen suppression plus radiotherapy with or without adjuvant docetaxel chemotherapy. This study demonstrated improved overall survival and disease-free survival in the chemotherapy arm. I also reviewed GETUG???12 study which also enrolled high-risk localized prostate cancer patients to androgen suppression and docetaxel chemotherapy with estramustine or androgen suppression alone. Updated results published in abstract form continued to demonstrate a relapse free survival with the administration of chemotherapy. I would endorse a 7/2-week course of radiotherapy which will be implemented following neoadjuvant hormonal therapy. A planning CT scan with contrast will be acquired prior to implementation of radiation treatment to delineate the clinical target volumes. I reviewed the potential toxicities of pelvic radiotherapy. The patient has verbalized understanding would like to proceed as recommended. The patient's medical treatment plan was discussed with Eliezer Nur M.D. Signed by: Dr. Tez Aguilar 05/01/2022 10:11:05 AM
[2022-05-01 10:43] LABS: Basophils % 0.3 %; Eosinophils # 0.1 10^3/uL (0.0-0.8); Eosinophils % 2.8 %; Hematocrit 38.5 % (42.0-52.0); Hemoglobin 12.9 g/dL (11.7-16.6); Lymphocytes # 1.4 10^3/uL (0.8-4.8); Lymphocytes % 39.3 %; Mean Corpuscular HGB Conc 33.5 g/dL (30.0-36.0); Mean Corpuscular Hemoglobin 32.1 pg (28.0-34.0); Mean Corpuscular Volume 95.8 fl (80-94); Mean Platelet Volume 8.8 fL (7.4-10.4); Monocytes # 0.3 10^3/uL (0.2-0.9); Monocytes % 7.1 %; Neutrophils # 1.79 10^3/uL (1.8-7.7); Neutrophils % 50.5 %; Nucleated Red Blood Cells % 0 %; Platelet Count 179 10^3/cmm (130-400); Red Blood Count 4.02 10^6/uL (4.1-5.3); White Blood Count 3.5 10^3/uL (4.0-10.0)
[2022-05-01 11:16] LABS: Alanine Aminotransferase 22 U/L (0-41); Albumin Level 4.3 g/dL (3.5-5.2); Alkaline Phosphatase 61 U/L (40-130); Anion Gap 13.4 (5-19); Aspartate Amino Transferase 22 U/L (0-40); Blood Urea Nitrogen 20 mg/dL (8-23); Calcium 9.6 mg/dL (8.5-10.5); Carbon Dioxide 27 mmol/L (22-29); Chloride 103 mmol/L (98-107); Globulin 2.6 g/dL (1.3-4.6); Glucose 104 mg/dL (65-115); Osmolality Calculated 291 mOsm/kg (285-295); Potassium 4.4 mmol/L (3.5-5.1); Sodium 139 mmol/L (136-145); Testosterone Total 550.2 ng/dL (193-740); Total Bilirubin 0.5 mg/dL (0.15-1.2); Total Protein 6.9 g/dL (6.6-8.7)
== END 2022-05-14 23:59 | disposition home or self-care (01) ==
PROVIDERS: Internal Medicine Hematology & Oncology; PCP Family Medicine; Visit Provider Radiology Radiation Oncology
DX: N40.1 Benign prostatic hyperplasia with lower urinary tract symptoms (principal); R35.0 Frequency of micturition; N41.0 Acute prostatitis; Z79.2 Long term (current) use of antibiotics; R97.20 Elevated prostate specific antigen [PSA]; N32.0 Bladder-neck obstruction; Z79.899 Other long term (current) drug therapy
CPT/HCPCS: 80053; 84153; 84403; 85025; 99204

== ENCOUNTER 2022-05-23 06:19 | Day surgery (SDC) | payer MEDICARE, OTHER, SELFPAY ==
[2022-05-21 09:22] VITALS: BMI 33.7
[2022-05-23 06:39] VITALS: BP 180/116; PULSE 76; RESP 18; TEMP 36.3; O2SAT 97
[2022-05-23] MEDS: sodium chloride 0.9% 1,000 ML 30 ML IV (06:48)
--- NOTE | 2022-05-23 06:50 | P.HP_ITS ---
Same Day Surgery H&P Indication for Procedure/HPI DATE OF PROCEDURE: May 23, 2022 CHIEF COMPLAINT/INDICATIONFOR SURGICAL PROCEDURE: Coming for colonoscopy PREOP DIAGNOSIS: History of right hemicolectomy for colon mass PLANNED PROCEDURE: Operation Date: 05/23/22 08:00 Proposed Procedures p Colonoscopy 89782,Z90.49(Not Applicable) - Lupillo Hendrickson MD 03/19/2022 Patient comes today for postop check status post open inguinal hernia repair with mesh placement and excision of lipoma of the cord on 01/28/2022.? Patient seems to be mending well.? And he has been cautious with avoiding heavy lifting.? Patient also is coming today to discuss repeat surveillance colonoscopy status post colon resection.? Back in January 2019 as he did have a colon mass.? Patient undergone a colonoscopy back in 2019 and showed evidence of patent ileocolic anastomosis status post open right hemicolectomy and there was evidence of diverticulosis of the sigmoid colon.? The plan at that time to repeat colonoscopy for surveillance purposes in 1 year.? But that did not take place. Patient reports intermittent sharp pain along the incision of the open inguinal hernia repair otherwise is doing well 05/23/2022 Patient comes today for surveillance colonoscopy ROS All systems have been reviewed negative except as for the above or per problem list. Medications/Allergies* Home Medications Medication Instructions Recorded Confirmed Type omeprazole 20 mg capsule,delayed 20 mg PO DAILY 02/22/20 05/23/22 History release ascorbate calcium (vitamin C) 500 500 mg PO DAILY 07/16/21 05/23/22 History mg tablet finasteride 5 mg tablet (Proscar) 5 mg PO QDAY 04/01/22 05/23/22 History tamsulosin 0.4 mg capsule (Flomax) 0.4 mg PO BID 04/01/22 05/23/22 History amitriptyline 25 mg tablet 12.5 mg PO .at bedtime 05/01/22 05/23/22 History doxycycline hyclate 100 mg capsule 100 mg PO DAILY 05/01/22 05/23/22 History Allergies/Adverse Reactions Allergy/AdvReac Type Severity Reaction Status Date / Time No Known Allergies Allergy Verified 05/23/22 06:51 Current Medications: Generic Name Dose Route Start Last Admin Trade Name Freq PRN Reason Stop Dose Admin Sodium Chloride 1,000 mls @ 30 mls/hr 05/23/22 06:30 12/09/22 06:48 Sodium Chloride 0.9% IV 30 mls/hr .Q24H THERON Administration Pertinent History/Comorbid Conditions* Medical History (Updated 04/18/22 @ 07:10 by Sheila Dobibns APRN) Abnormal prostate exam Bladder pain BPH (benign prostatic hyperplasia) BPH loc w urin obs/LUTS Elevated PSA GERD (gastroesophageal reflux disease) History of colon cancer Hyperlipidemia Hypertension Peripheral neuropathy Right inguinal hernia Surgical History (Updated 03/11/22 @ 19:08 by Vicente Tenorio MD) History of appendectomy History of colonoscopy (~03/2020) [facility] [place] History of colonoscopy with polypectomy (12/2018) History of hip replacement, total History of inguinal hernia repair History of partial colectomy (~01/2019) DR. [facility] [place] Family History (Updated 05/01/22 @ 08:09 by Emily Carey LPN) Father, AT 62 Mother, AT 72 CAD (coronary artery disease) Father Cancer Grandmother Stroke Mother Denies family history of Diabetes Clotting disorder Dementia Hyperlipidemia Psychiatric illness Chronic kidney disease (CKD) Suicide Anesthesia complication Bleeding disorder Lung disease Hypertension Social History Smoking and tobacco status: current every day smoker smokeless tobacco Smokeless tobacco user: chewing tobacco Alcohol intake: never Marital status: Current occupational status: retired History of recent travel: No Jyoti/Amish: Druze Pertinent Exam Findings alert, oriented x 3, regular rate & rhythm and procedure specific exam findings (Abdominal exam nontender nondistended soft) Recommendations Surgery/Procedure today ( Colonoscopy with possible biopsy) Coding Level of Care Code 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
--- NOTE | 2022-05-23 07:03 | P.ANESASSM_ITS ---
Pre-Anesthetic Assessment Height/Weight: Height 1.78 m Weight 106.594 kg Temp Pulse Resp BP Pulse Ox O2 Del Method 97.3 F L 76 18 180/116 97 05/23/22 06:39 05/23/22 06:39 05/23/22 06:39 05/23/22 06:39 05/23/22 06:39 05/23/22 06:39 Preop Diagnosis: History of right hemicolectomy for colon mass Operation Date: 05/23/22 08:00 Proposed Procedures p Colonoscopy 40907,Z90.49(Not Applicable) - Lupillo Burciaga MD Familial anesthetic complications: none Was Beta Bill taken within 24 hours: N/A Was Clonidine taken within 24 hours: N/A Last intake: Intake Last Liquid Date 05/22/22 Last Liquid Time 20:00 Last Solid Date 05/21/22 Last Solid Time 10:00 Last Intake: 20:00 Social Tobacco (chew) and No alcohol Exam alert, oriented x 3, clear to auscultation bilaterally and regular rate & rhythm Airway Submandibular: within normal limits Cervical ROM: within normal limits Mallampati: Class II Dentition: full Pulmonary Exertional Dyspnea (3-4years) CV/HEM Hypertension (hx yet no meds needed at this time) BPH Hepatic None reported GI Gastroesophageal Reflux Disease Metabolic None reported Musc/skel Lower Back Pain and Osteoarthritis/DJD Neuropsych None reported Anesthetic Plan ASA status: 2 Anesthesia: MAC Medications/Allergies Home Medications Medication Instructions Recorded Confirmed Last Taken Type omeprazole 20 mg capsule,delayed 20 mg PO DAILY 02/22/20 05/23/22 05/22/22 History release ascorbate calcium (vitamin C) 500 500 mg PO DAILY 07/16/21 05/23/22 05/21/22 History mg tablet finasteride 5 mg tablet (Proscar) 5 mg PO QDAY 04/01/22 05/23/22 05/22/22 History tamsulosin 0.4 mg capsule (Flomax) 0.4 mg PO BID 04/01/22 05/23/22 05/22/22 History amitriptyline 25 mg tablet 12.5 mg PO .at bedtime 05/01/22 05/23/22 05/20/22 History bicalutamide 50 mg tablet (Casodex) 50 mg PO DAILY 30 days #30 tabs 1105/23/22 05/22/22 Rx doxycycline hyclate 100 mg capsule 100 mg PO DAILY 05/01/22 05/23/22 05/22/22 History Allergies Allergy/AdvReac Type Severity Reaction Status Date / Time No Known Allergies Allergy Verified 05/23/22 06:51 Current Medications Generic Name Dose Route Start Last Admin Trade Name Freq PRN Reason Stop Dose Admin Sodium Chloride 1,000 mls @ 30 mls/hr 05/23/22 06:30 05/23/22 06:48 Sodium Chloride 0.9% IV 30 mls/hr .Q24H THERON Administration PFSH Anesthesia Medical History Abnormal prostate exam Bladder pain BPH (benign prostatic hyperplasia) BPH loc w urin obs/LUTS Elevated PSA GERD (gastroesophageal reflux disease) History of colon cancer Hyperlipidemia Hypertension Peripheral neuropathy Right inguinal hernia Surgical History History of appendectomy [facility] [place] History of colonoscopy with polypectomy (12/2018) History of hip replacement, total History of inguinal hernia repair History of partial colectomy (~01/2019) DR. CAMPBELL [place] Family History (Updated 05/01/22 @ 08:09 by Emily Carey LPN) Mother , AT 72 Stroke Father , AT 62 CAD (coronary artery disease) Grandmother Cancer Denies family history of Diabetes Clotting disorder Dementia Hyperlipidemia Psychiatric illness Chronic kidney disease (CKD) Suicide Anesthesia complication Bleeding disorder Lung disease Hypertension Social History (Updated 05/01/22 @ 08:08 by Emily Carey LPN) Smoking and tobacco status: current every day smoker smokeless tobacco Smokeless tobacco user: chewing tobacco Alcohol intake: never Marital status: Current occupational status: retired History of recent travel: No Jyoti/Samaritan: Cheondoism Data Anesthesia Cardiac Studies: Echocardiogram Ultrasound 05/01/20
[2022-05-23 08:10] VITALS: BP 141/91; PULSE 71; RESP 18; TEMP 36.1; O2SAT 91
--- NOTE | 2022-05-23 08:10 | ANE.PACU2 ---
Inpatient post-anesthesia follow up: Airway intact: Yes Vital signs: Temperature 97.3 F Pulse Rate 76 Respiratory Rate 18 Blood Pressure 180/116 Pulse Oximetry 97 Oxygen Delivery Me thod Room Air Oxygen Flow Rate Fraction of Inspir ed Oxygen Hydration adequate: Yes Nausea and vomiting: No Pain level: 1 Mental status: Baseline
[2022-05-23 08:14] VITALS: BP 142/90; PULSE 60; RESP 18; O2SAT 97
[2022-05-23 08:21] VITALS: BP 152/87; PULSE 78; RESP 18; O2SAT 95
== END 2022-05-23 08:40 | disposition home or self-care (01) ==
PROVIDERS: PCP Family Medicine; Visit Provider Surgery
PROC: 0DJD8ZZ Inspection of Lower Intestinal Tract, Via Natural or Artificial Opening Endoscopic (ICD-10-PCS; CPT 45378; principal; 2022-05-23 08:00)
DX: Z12.11 Encounter for screening for malignant neoplasm of colon (principal); K57.30 Diverticulosis of large intestine without perforation or abscess without bleeding; Z90.49 Acquired absence of other specified parts of digestive tract; N40.1 Benign prostatic hyperplasia with lower urinary tract symptoms; N13.8 Other obstructive and reflux uropathy; K21.9 Gastro-esophageal reflux disease without esophagitis; E78.5 Hyperlipidemia, unspecified; I10 Essential (primary) hypertension; Z85.038 Personal history of other malignant neoplasm of large intestine; F17.220 Nicotine dependence, chewing tobacco, uncomplicated
CPT/HCPCS: 45378; J2704; J7030

== ENCOUNTER 2022-06-05 08:29 | Oncology outpatient (recurring) (ONCR) | payer MEDICARE, SELFPAY ==
[2022-06-05 08:53] LABS: Basophils % 0.6 %; Eosinophils # 0.1 10^3/uL (0.0-0.8); Eosinophils % 2.8 %; Hematocrit 39.5 % (42.0-52.0); Hemoglobin 13.3 g/dL (11.7-16.6); Lymphocytes # 1.7 10^3/uL (0.8-4.8); Lymphocytes % 33.6 %; Mean Corpuscular HGB Conc 33.7 g/dL (30.0-36.0); Mean Platelet Volume 8.7 fL (7.4-10.4); Monocytes # 0.4 10^3/uL (0.2-0.9); Neutrophils # 2.81 10^3/uL (1.8-7.7); Neutrophils % 55.8 %; Nucleated Red Blood Cells % 0 %; Platelet Count 194 10^3/cmm (130-400); Red Blood Count 4.16 10^6/uL (4.1-5.3); Red Cell Distribution Width 12.6 % (12.1-15.1)
[2022-06-05 09:21] LABS: Alanine Aminotransferase 27 U/L (0-41); Albumin Level 4.3 g/dL (3.5-5.2); Alkaline Phosphatase 65 U/L (40-130); Aspartate Amino Transferase 26 U/L (0-40); Blood Urea Nitrogen 26 mg/dL (8-23); Calcium 9.8 mg/dL (8.5-10.5); Carbon Dioxide 25 mmol/L (22-29); Chloride 103 mmol/L (98-107); Globulin 2.8 g/dL (1.3-4.6); Glucose 105 mg/dL (65-115); Osmolality Calculated 293 mOsm/kg (285-295); Sodium 139 mmol/L (136-145); Testosterone Total 752.2 ng/dL (193-740); Total Bilirubin 0.4 mg/dL (0.15-1.2); Total Protein 7.1 g/dL (6.6-8.7)
[2022-06-05 09:26] LABS: Anion Gap 15.9 (5-19); Potassium 4.9 mmol/L (3.5-5.1)
[2022-06-05] MEDS: leuprolide 22.5 mg Kit IM (10:34)
[2022-06-05 10:45] VITALS: BP 147/78; PULSE 65; RESP 18; TEMP 36.6; O2SAT 98
--- NOTE | 2022-06-05 10:57 | PC.NURSE ---
Patient came into the infusion suite with Lupron injection education and injection given in upper right arm with no issues or concerns.adelina
== END 2022-06-14 23:59 | disposition home or self-care (01) ==
PROVIDERS: Internal Medicine Hematology & Oncology; PCP Family Medicine; Visit Provider Radiology Radiation Oncology
DX: N40.1 Benign prostatic hyperplasia with lower urinary tract symptoms (principal); R35.0 Frequency of micturition; N41.0 Acute prostatitis; Z79.2 Long term (current) use of antibiotics; R97.20 Elevated prostate specific antigen [PSA]; N32.0 Bladder-neck obstruction; Z79.899 Other long term (current) drug therapy; K57.31 Diverticulosis of large intestine without perforation or abscess with bleeding; Z90.49 Acquired absence of other specified parts of digestive tract
CPT/HCPCS: 36415; 80053; 84153; 84403; 85025; 96402; 99212; 99214; J9217

== ENCOUNTER 2022-07-11 09:32 | Oncology outpatient (recurring) (ONCR) | payer MEDICARE, OTHER, SELFPAY ==
[2022-07-11 11:01] LABS: Testosterone Total 29.2 ng/dL (193-740)
[2022-07-11 13:03] LABS: Prostate Specific Antigen 0.115 ng/mL (0-4)
== END 2022-07-15 23:59 | disposition home or self-care (01) ==
PROVIDERS: Internal Medicine Hematology & Oncology; PCP Family Medicine; Visit Provider Radiology Radiation Oncology
DX: R97.20 Elevated prostate specific antigen [PSA]; Z79.899 Other long term (current) drug therapy; C61 Malignant neoplasm of prostate
CPT/HCPCS: 36415; 84153; 84403; 99214

== ENCOUNTER 2022-08-12 13:00 | Oncology outpatient (recurring) (ONCR) | payer MEDICARE, OTHER, SELFPAY ==
--- NOTE | 2022-07-23 | CT_ITS ---
Radiation Therapy Planning CT images; total exam DLP: 2056.93 mGy-cm MTDD
[2022-07-23] MEDS: iohexol 350 mg/mL 100 mL Btl IV (12:47)
[2022-07-23 14:36] LABS: Blood Urea Nitrogen 27 mg/dL (8-23)
--- NOTE | 2022-07-29 13:58 | ONCRAD TMN_ITS ---
Radiation Oncology Treatment Management Note Patient Name: Adama Galeas Date of : 1945 Date of Service: 07/29/2022 Attending Physician: Tez Aguilar M.D. Adama Galeas is a 76 year old white male diagnosed with a clinical IIIC (T1cN0) very high-risk prostate cancer. He initially was identified to have an elevated PSA level (11.3 ng/mL) in August of 2020. He initially declined a biopsy. A repeat PSA obtained in March of 2021 was 12.5 ng/mL. A biopsy was recommended but the patient refused. He continued close follow-up and management for progressive lower urinary tract symptoms. A PSA level on March 11, 2022 was 12.6 ng/mL. An MRI of the prostate ordered on March 26, 2022 revealed a 4 cm x 5 cm x 5.4 cm prostate gland. Diffuse abnormal signal intensity with restricted diffusion and enhancement involving the prostate gland. The prostatic capsule was lobulated with abnormal signal in the base of the left seminal vesicle consistent with extraprostatic extension. A transrectal ultrasound of the prostate with biopsy was performed on April 02, 2022. Biopsies diagnosed an adenocarcinoma with a Daron score of 5+5 (grade group 5) involving all of the cores submitted. Perineural invasion and josette-prostatic fat invasion were described. A nuclear bone scintigraphy and abdominopelvic CT scan did not demonstrate metastatic disease. He was prescribed Eligard on June 05, 2022. The patient has received 4 Gy of a prescribed 46 Aguiar to the prostate and regional lymph nodes with an intensity modulated radiotherapy plan utilizing a step and shoot treatment technique. An additional 32 Aguiar will be delivered to the prostate gland subsequent to the initial crump. Upon review of systems, he denied any gastrointestinal of genitourinary complaints related to radiotherapy. On physical examination, the patient weighed 246 lbs. His temperature was 98.1 ???F and the blood pressure was 167/97 mmHg. The pulse was 68 bpm and his respiratory rate was 16. Continue pelvic radiotherapy as prescribed. Signed by: Dr. Tez Aguilar 07/29/2022 1:56:11 PM
--- NOTE | 2022-08-05 13:57 | ONCRAD TMN_ITS ---
Radiation Oncology Treatment Management Note Patient Name: Adama Galeas Date of : 1945 Date of Service: 08/05/2022 Attending Physician: Tez Aguilar M.D. Adama Galeas is a 76 year old white male diagnosed with a clinical IIIC (T1cN0) very high-risk prostate cancer. He initially was identified to have an elevated PSA level (11.3 ng/mL) in August of 2020. He initially declined a biopsy. A repeat PSA obtained in March of 2021 was 12.5 ng/mL. A biopsy was recommended but the patient refused. He continued close follow-up and management for progressive lower urinary tract symptoms. A PSA level on March 11, 2022 was 12.6 ng/mL. An MRI of the prostate ordered on March 26, 2022 revealed a 4 cm x 5 cm x 5.4 cm prostate gland. Diffuse abnormal signal intensity with restricted diffusion and enhancement involving the prostate gland. The prostatic capsule was lobulated with abnormal signal in the base of the left seminal vesicle consistent with extraprostatic extension. A transrectal ultrasound of the prostate with biopsy was performed on April 02, 2022. Biopsies diagnosed an adenocarcinoma with a Daron score of 5+5 (grade group 5) involving all of the cores submitted. Perineural invasion and josette-prostatic fat invasion were described. A nuclear bone scintigraphy and abdominopelvic CT scan did not demonstrate metastatic disease. He was prescribed Eligard on June 05, 2022. The patient has received 14 Gy of a prescribed 46 Aguiar to the prostate and regional lymph nodes with an intensity modulated radiotherapy plan utilizing a step and shoot treatment technique. An additional 32 Gy will be delivered to the prostate gland subsequent to the initial crump. Upon review of systems, he did not report any new complaints. On physical examination, the patient weighed 245 lbs. His temperature was 97 ???F and the blood pressure was 138/84 mmHg. The pulse was 73 bpm and his respiratory rate was 16. There was no erythema within the treatment crump. Continue pelvic radiotherapy as planned. Signed by: Tez Aguilar 08/05/2022 1:55:59 PM
--- NOTE | 2022-08-12 13:36 | ONCRAD TMN_ITS ---
Radiation Oncology Treatment Management Note Patient Name: Adama Galeas Date of : 1945 Date of Service: 08/12/2022 Attending Physician: Tez Aguilar M.D. Adama Galeas is a 76 year old white male diagnosed with a clinical IIIC (T1cN0) very high-risk prostate cancer. He initially was identified to have an elevated PSA level (11.3 ng/mL) in August of 2020. He initially declined a biopsy. A repeat PSA obtained in March of 2021 was 12.5 ng/mL. A biopsy was recommended but the patient refused. He continued close follow-up and management for progressive lower urinary tract symptoms. A PSA level on March 11, 2022 was 12.6 ng/mL. An MRI of the prostate ordered on March 26, 2022 revealed a 4 cm x 5 cm x 5.4 cm prostate gland. Diffuse abnormal signal intensity with restricted diffusion and enhancement involving the prostate gland. The prostatic capsule was lobulated with abnormal signal in the base of the left seminal vesicle consistent with extraprostatic extension. A transrectal ultrasound of the prostate with biopsy was performed on April 02, 2022. Biopsies diagnosed an adenocarcinoma with a Daron score of 5+5 (grade group 5) involving all of the cores submitted. Perineural invasion and josette-prostatic fat invasion were described. A nuclear bone scintigraphy and abdominopelvic CT scan did not demonstrate metastatic disease. He was prescribed Eligard on June 05, 2022. The patient has received 24 Gy of a prescribed 46 Aguiar to the prostate and regional lymph nodes with an intensity modulated radiotherapy plan utilizing a step and shoot treatment technique. An additional 32 Gy will be delivered to the prostate gland subsequent to the initial crump. Upon review of systems, he did not report any new complaints (he has a history of self-catheterization). On physical examination, the patient weighed 245 lbs. His temperature was 97 ???F and the blood pressure was 138/84 mmHg. The pulse was 73 bpm and his respiratory rate was 16. There was no erythema within the treatment crump. Continue pelvic radiotherapy as prescribed. I recommended a trial of NSAIDs. Signed by: Tez Aguilar 08/12/2022 1:57:28 PM
== END 2022-08-12 23:59 | disposition home or self-care (01) ==
PROVIDERS: PCP Family Medicine; Visit Provider Radiology Radiation Oncology
DX: N40.1 Benign prostatic hyperplasia with lower urinary tract symptoms (principal); R35.0 Frequency of micturition; N41.0 Acute prostatitis; Z79.2 Long term (current) use of antibiotics; R97.20 Elevated prostate specific antigen [PSA]; N32.0 Bladder-neck obstruction; Z79.899 Other long term (current) drug therapy; K57.31 Diverticulosis of large intestine without perforation or abscess with bleeding; Z90.49 Acquired absence of other specified parts of digestive tract
CPT/HCPCS: 77300; 77301; 77334; 77336; 77338; 77385; 77470; 82565; 84520; 99024; 99214; Q9967

== ENCOUNTER → 2022-08-28 12:00 | Outpatient (BNVA) | payer MEDICARE, OTHER, SELFPAY | PROVIDERS: PCP Family Medicine; Visit Provider Internal Medicine Hematology & Oncology | DX: C61 Malignant neoplasm of prostate (principal) | CPT/HCPCS: 99214 ==

== ENCOUNTER 2022-09-12 09:50 | Oncology outpatient (recurring) (ONCR) | payer MEDICARE, OTHER, SELFPAY ==
--- NOTE | 2022-08-19 13:47 | ONCRAD TMN_ITS ---
Radiation Oncology Treatment Management Note Patient Name: Adama Galeas Date of : 1945 Date of Service: 08/19/2022 Attending Physician: Tez Aguilar M.D. Adama Galeas is a 76 year old white male diagnosed with a clinical IIIC (T1cN0) very high-risk prostate cancer. He initially was identified to have an elevated PSA level (11.3 ng/mL) in August of 2020. He initially declined a biopsy. A repeat PSA obtained in March of 2021 was 12.5 ng/mL. A biopsy was recommended but the patient refused. He continued close follow-up and management for progressive lower urinary tract symptoms. A PSA level on March 11, 2022 was 12.6 ng/mL. An MRI of the prostate ordered on March 26, 2022 revealed a 4 cm x 5 cm x 5.4 cm prostate gland. Diffuse abnormal signal intensity with restricted diffusion and enhancement involving the prostate gland. The prostatic capsule was lobulated with abnormal signal in the base of the left seminal vesicle consistent with extraprostatic extension. A transrectal ultrasound of the prostate with biopsy was performed on April 02, 2022. Biopsies diagnosed an adenocarcinoma with a [place] score of 5+5 (grade group 5) involving all of the cores submitted. Perineural invasion and josette-prostatic fat invasion were described. A nuclear bone scintigraphy and abdominopelvic CT scan did not demonstrate metastatic disease. He was prescribed Eligard on June 05, 2022. The patient has received 34 Gy of a prescribed 46 Aguiar to the prostate and regional lymph nodes with an intensity modulated radiotherapy plan utilizing a step and shoot treatment technique. An additional 32 Gy will be delivered to the prostate gland subsequent to the initial crump. Upon review of systems, he did not report any new complaints (he self-catheterizes). On physical examination, the patient weighed 242 lbs. His temperature was 97.2 ???F and the blood pressure was 153/96 mmHg. The pulse was 70 bpm and his respiratory rate was 18. There was no erythema within the treatment crump. Continue pelvic radiotherapy as planned. I will prescribe a trial of Hytrin. He is aware of the potentiation of hypotension in conjunction with Flomax. Signed by: Tez Aguilar 08/19/2022 1:47:40 PM
[2022-08-26 14:39] LABS: Bilirubin Urine Neg (Negative); Blood Urine Neg (Negative); Glucose Urine UA Norm (Normal); Ketones Urine Negative (Negative); Leukocyte Esterase Urine Negative (Negative); Nitrate Urine Negative (Negative); Protein Urine Neg (Negative); Urine Appearance Clear (CLEAR); Urine Color Yellow (Yellow); Urobilinogen Urine Norm (Negative); pH Urine 5 (5-7)
[2022-08-26 14:40] LABS: Bacteria Urine TRACE /hpf; WBC Urine 0-4 /hpf (0-5)
[2022-08-26 14:41] LABS: Mucus Urine TRACE /hpf
[2022-08-26 14:42] LABS: Amorphous Sediment Urine TRACE /hpf
[2022-08-26 14:43] LABS: Hyaline Casts Urine RARE /lpf
[2022-08-26 14:48] LABS: Add Urine Culture? No
--- NOTE | 2022-08-26 15:29 | ONCRAD TMN_ITS ---
Radiation Oncology Weekly Treatment Management Patient: Adal Posada MR#: [id number] : 1945> Attending Physician: John Busch DO Date of Service: 08/26/2022 Referring Physician(s) : Eliezer Nur Diagnosis: C61 - Malignant neoplasm of prostate, Diagnosed 04/02/2022 (Active) Stage IIIC, T3b, N0, M0, P>=10<20, G5 Radiotherapy to date: Course: Prostate 2022, Treatment Site: Prostate Ca - Very HR, Ref. ID: [id number], Energy: 6X, Dose/Fx (cGy): 200, #Fx: , Dose Correction (cGy): 0, Total Dose (cGy): 4,400, Start Date: 07/28/2022, Elapsed Days: Reason for visit: The patient is being seen today as part of their regularly scheduled weekly on treatment visits to assess for acute toxicities from radiotherapy. Review of Systems: Patient complained of extreme fatigue and low blood pressure after taking Hytrin and 2 Flomax tablets. He denies falling or loss of consciousness. He has a long history of urinary hesitancy and catheterization prior to initiating radiation therapy. He indicates he has no remaining on Hytrin and does not plan to take any additional Hytrin in the future. Vital Signs: Performed on 08/26/2022 1:00 PM BMI - 34.437 kg/m2 (high), Height - 70 in, Weight - 240 lbs, Temperature - 97.3 f, Pulse - 69 /min, Respiration - 18 /min, O2 Sat - 99 %, Pain - 0, Fatigue - 5 and BP - 153/ 90 mm(hg)(high/). Physical Exam: Patient is alert and oriented. Speech intact. Skin in the treatment area is intact without erythema or desquamation. Patient ambulatory without assistance. Imaging: Radiation therapy imaging related to accurate target localization (i.e. KV, MV and CBCT) was reviewed. Appropriate changes, if any, were made to ensure treatment accuracy. Plan: Urinalysis has been ordered today. If the UA is positive antibiotics will be initiated. Signed by: John Busch DO 08/26/2022 3:28:23 PM
[2022-08-28 13:00] LABS: Basophils % 0.3 %; Eosinophils # 0.2 10^3/uL (0.0-0.8); Eosinophils % 5.3 %; Hematocrit 32.8 % (42.0-52.0); Hemoglobin 10.9 g/dL (11.7-16.6); Lymphocytes # 0.5 10^3/uL (0.8-4.8); Lymphocytes % 12.5 %; Mean Corpuscular HGB Conc 33.2 g/dL (30.0-36.0); Mean Corpuscular Hemoglobin 32.6 pg (28.0-34.0); Mean Corpuscular Volume 98.2 fl (80-94); Mean Platelet Volume 8.6 fL (7.4-10.4); Monocytes # 0.3 10^3/uL (0.2-0.9); Neutrophils # 2.76 10^3/uL (1.8-7.7); Neutrophils % 73.4 %; Nucleated Red Blood Cells % 0 %; Platelet Count 226 10^3/cmm (130-400); Red Blood Count 3.34 10^6/uL (4.1-5.3); Red Cell Distribution Width 13.6 % (12.1-15.1); White Blood Count 3.8 10^3/uL (4.0-10.0)
[2022-08-28 13:32] LABS: Alanine Aminotransferase 24 U/L (0-41); Albumin Level 3.7 g/dL (3.5-5.2); Alkaline Phosphatase 61 U/L (40-130); Blood Urea Nitrogen 23 mg/dL (8-23); Calcium 9.3 mg/dL (8.5-10.5); Carbon Dioxide 23 mmol/L (22-29); Chloride 104 mmol/L (98-107); Globulin 2.9 g/dL (1.3-4.6); Glucose 99 mg/dL (65-115); Osmolality Calculated 292 mOsm/kg (285-295); Prostate Specific Antigen 0.015 ng/mL (0-4); Sodium 139 mmol/L (136-145); Total Bilirubin 0.2 mg/dL (0.15-1.2); Total Protein 6.6 g/dL (6.6-8.7)
[2022-08-28 13:45] LABS: Anion Gap 16.2 (5-19); Aspartate Amino Transferase 22 U/L (0-40); Potassium 4.2 mmol/L (3.5-5.1)
[2022-08-28] MEDS: leuprolide 22.5 mg Kit IM (14:47)
--- NOTE | 2022-09-02 13:36 | ONCRAD TMN_ITS ---
Radiation Oncology Treatment Management Note Patient Name: Adama Galeas Date of : 1945 Date of Service: 09/02/2022 Attending Physician: Tez Aguilar M.D. Adama Galeas is a 76 year old white male diagnosed with a clinical IIIC (T1cN0) very high-risk prostate cancer. He initially was identified to have an elevated PSA level (11.3 ng/mL) in August of 2020. He initially declined a biopsy. A repeat PSA obtained in March of 2021 was 12.5 ng/mL. A biopsy was recommended but the patient refused. He continued close follow-up and management for progressive lower urinary tract symptoms. A PSA level on March 11, 2022 was 12.6 ng/mL. An MRI of the prostate ordered on March 26, 2022 revealed a 4 cm x 5 cm x 5.4 cm prostate gland. Diffuse abnormal signal intensity with restricted diffusion and enhancement involving the prostate gland. The prostatic capsule was lobulated with abnormal signal in the base of the left seminal vesicle consistent with extraprostatic extension. A transrectal ultrasound of the prostate with biopsy was performed on April 02, 2022. Biopsies diagnosed an adenocarcinoma with a Daron score of 5+5 (grade group 5) involving all of the cores submitted. Perineural invasion and josette-prostatic fat invasion were described. A nuclear bone scintigraphy and abdominopelvic CT scan did not demonstrate metastatic disease. He was prescribed Eligard on June 05, 2022. The patient has received 52 Gy of a prescribed 78 Aguiar to the prostate and regional lymph nodes with an intensity modulated radiotherapy plan utilizing a step and shoot treatment technique. Upon review of systems, he did not report any new complaints (he self-catheterizes). On physical examination, the patient weighed 242 lbs. His temperature was 96.8 ???F and the blood pressure was 153/88 mmHg. The pulse was 71 bpm and his respiratory rate was 18. There was no erythema within the treatment crump. Continue pelvic radiotherapy as prescribed. I will refer him for TURP consideration. Signed by: Tez Aguilar 09/02/2022 1:34:39 PM
--- NOTE | 2022-09-10 13:39 | ONCRAD TMN_ITS ---
Radiation Oncology Treatment Management Note Patient Name: Adama Galeas Date of : 1945 Date of Service: 09/10/2022 Attending Physician: Tez Aguilar M.D. Adama Galeas is a 76 year old white male diagnosed with a clinical IIIC (T1cN0) very high-risk prostate cancer. He initially was identified to have an elevated PSA level (11.3 ng/mL) in August of 2020. He initially declined a biopsy. A repeat PSA obtained in March of 2021 was 12.5 ng/mL. A biopsy was recommended but the patient refused. He continued close follow-up and management for progressive lower urinary tract symptoms. A PSA level on March 11, 2022 was 12.6 ng/mL. An MRI of the prostate ordered on March 26, 2022 revealed a 4 cm x 5 cm x 5.4 cm prostate gland. Diffuse abnormal signal intensity with restricted diffusion and enhancement involving the prostate gland. The prostatic capsule was lobulated with abnormal signal in the base of the left seminal vesicle consistent with extraprostatic extension. A transrectal ultrasound of the prostate with biopsy was performed on April 02, 2022. Biopsies diagnosed an adenocarcinoma with a Daron score of 5+5 (grade group 5) involving all of the cores submitted. Perineural invasion and josette-prostatic fat invasion were described. A nuclear bone scintigraphy and abdominopelvic CT scan did not demonstrate metastatic disease. He was prescribed Eligard on June 05, 2022. The patient has received 62 Gy of a prescribed 78 Aguiar to the prostate and regional lymph nodes with an intensity modulated radiotherapy plan utilizing a step and shoot treatment technique. Upon review of systems, he is catheterizing at night that has improved his sleep quality. On physical examination, the patient weighed 235 lbs. His temperature was 97.6 ???F and the blood pressure was 147/80 mmHg. The pulse was 76 bpm and his respiratory rate was 18. There was no erythema within the treatment crump. Continue pelvic radiotherapy as planned. Signed by: Tez Aguilar 09/10/2022 1:37:41 PM
== END 2022-09-12 23:59 | disposition home or self-care (01) ==
PROVIDERS: Internal Medicine Hematology & Oncology; Radiology Radiation Oncology; PCP Family Medicine; Visit Provider Radiology Radiation Oncology
DX: Z51.0 Encounter for antineoplastic radiation therapy; C61 Malignant neoplasm of prostate
CPT/HCPCS: 36415; 77014; 77300; 77336; 77338; 77385; 77427; 80053; 81001; 84153; 85025; 96402; 99024; 99214; J9217

== ENCOUNTER 2022-09-19 09:38 | Oncology outpatient (recurring) (ONCR) | payer MEDICARE, OTHER, SELFPAY ==
--- NOTE | 2022-09-16 14:07 | ONCRAD TMN_ITS ---
Radiation Oncology Treatment Management Note Patient Name: Adama Galeas Date of : 1945 Date of Service: 09/16/2022 Attending Physician: Tez Aguilar M.D. Adama Galeas is a 76 year old white male diagnosed with a clinical IIIC (T1cN0) very high-risk prostate cancer. He initially was identified to have an elevated PSA level (11.3 ng/mL) in August of 2020. He initially declined a biopsy. A repeat PSA obtained in March of 2021 was 12.5 ng/mL. A biopsy was recommended but the patient refused. He continued close follow-up and management for progressive lower urinary tract symptoms. A PSA level on March 11, 2022 was 12.6 ng/mL. An MRI of the prostate ordered on March 26, 2022 revealed a 4 cm x 5 cm x 5.4 cm prostate gland. Diffuse abnormal signal intensity with restricted diffusion and enhancement involving the prostate gland. The prostatic capsule was lobulated with abnormal signal in the base of the left seminal vesicle consistent with extraprostatic extension. A transrectal ultrasound of the prostate with biopsy was performed on April 02, 2022. Biopsies diagnosed an adenocarcinoma with a [place] score of 5+5 (grade group 5) involving all of the cores submitted. Perineural invasion and josette-prostatic fat invasion were described. A nuclear bone scintigraphy and abdominopelvic CT scan did not demonstrate metastatic disease. He was prescribed Eligard on June 05, 2022. The patient has received 72 Gy of a prescribed 78 Aguiar to the prostate and regional lymph nodes with an intensity modulated radiotherapy plan utilizing a step and shoot treatment technique. Upon review of systems, he did not describe any new complaints. On physical examination, the patient weighed 233 lbs. His temperature was 96.7 ???F and the blood pressure was 114/74 mmHg. The pulse was 87 bpm and his respiratory rate was 18. There was no erythema within the treatment crump. Continue pelvic radiotherapy as planned. Signed by: Tez Aguilar 09/16/2022 2:05:48 PM
--- NOTE | 2022-09-19 10:14 | N.ONRD TS_ITS ---
Radiation OncologyTreatment Summary Patient Name: Adama Galeas Date of : 1945 Date of Service: 09/19/2022 Attending Physician: Tez Aguilar M.D. Adama Galeas has completed definitive prostate radiotherapy for the management of a clinical stage IIIC (T1cN0) very high-risk prostate cancer. He initially was identified to have an elevated PSA level (11.3 ng/mL) in August of 2020. He initially declined a biopsy. A repeat PSA obtained in March of 2021 was 12.5 ng/mL. A biopsy was recommended but the patient refused. He continued close follow-up and management for progressive lower urinary tract symptoms. A PSA level on March 11, 2022 was 12.6 ng/mL. An MRI of the prostate ordered on March 26, 2022 revealed a 4 cm x 5 cm x 5.4 cm prostate gland. Diffuse abnormal signal intensity with restricted diffusion and enhancement involving the prostate gland. The prostatic capsule was lobulated with abnormal signal in the base of the left seminal vesicle consistent with extraprostatic extension. A transrectal ultrasound of the prostate with biopsy was performed on April 02, 2022. Biopsies diagnosed an adenocarcinoma with a [place] score of 5+5 (Grade Group 5) involving all of the cores submitted. Perineural invasion and josette-prostatic fat invasion were described. A nuclear bone scintigraphy and abdominopelvic CT scan did not demonstrate metastatic disease. He was prescribed Eligard on June 05, 2022. Pelvic radiation therapy was delivered between the dates of July 28, 2022 through September 19, 2022. A prescribed dose of 78 Gy was delivered in 39 fractions encompassing 54 elapsed days. The prostate gland, seminal vesicles, and regional lymph node stations were treated utilizing an intensity modulated radiotherapy plan with a step and shoot treatment technique. The plan arranged eight gantry angles (0???, 41???, 82???, 123???, 164???, 196???, 237???, and 319???) replicating an arc. The collimator rotation was 0???. The field sizes spanned between 16.1 cm x 19.8 cm to 20.4 cm x 20 cm. The SSD measured a minimum of 80 cm to a maximum of 88.5 cm. The ports delivered 261 MU, 235 MU, 231 MU, 215 MU, 214 MU, 222 MU, 213 MU, and 222 MU corresponding to the gantry angles described. The initial crump began on July 28, 2022 and continued through August 28, 2022. A prescribed dose of 46 Aguiar was administered 23 fractions over 32 elapsed days. The prostate gland and seminal vesicles were subsequently treated incorporating and intensity modulated radiotherapy plan with a step and shoot treatment technique. The plan arranged eight gantry angles (0???, 41???, 82???, 123???, 164???, 196???, 237???, and 319???) replicating an arc. The collimator rotation was 0???. The crump measured between 7.5 cm x 8.7 cm to 9.8 cm x 8.7 cm. The measured SSD ranged between 80 cm to 88.5 cm. The ports allocated 189 MU, 156 MU, 110 MU, 95 MU, 196 MU, 182 MU, 107 MU, and 186 MU corresponding to the gantry angles described. The reduced ports started on August 29, 2022 and concluded on September 19, 2022. An additional 32 Gy was allocated in 16 fractions over 22 elapsed days. He received cycle 2 of Eligard on August 28, 2022. All treatments were performed with the [employer] linear accelerator and an isocentric technique. Low energy photons were prescribed. The dose was calculated by Anisotropic Analytic Algorithm with the plan normalized to deliver 100% of the prescription dose to 98% of the planning target volume. Signed by: Tez Aguilar 09/19/2022 10:17:32 AM
== END 2022-10-12 23:59 | disposition home or self-care (01) ==
PROVIDERS: PCP Family Medicine; Visit Provider Radiology Radiation Oncology
DX: N40.1 Benign prostatic hyperplasia with lower urinary tract symptoms (principal); K57.31 Diverticulosis of large intestine without perforation or abscess with bleeding; Z51.0 Encounter for antineoplastic radiation therapy; C61 Malignant neoplasm of prostate; N30.10 Interstitial cystitis (chronic) without hematuria; Z90.49 Acquired absence of other specified parts of digestive tract; F17.210 Nicotine dependence, cigarettes, uncomplicated; Z79.2 Long term (current) use of antibiotics; Z79.899 Other long term (current) drug therapy; Z90.89 Acquired absence of other organs; R30.0 Dysuria; Z79.52 Long term (current) use of systemic steroids; Z79.818 Long term (current) use of other agents affecting estrogen receptors and estrogen levels
CPT/HCPCS: 77336; 77385; 99024

== ENCOUNTER 2022-10-22 10:57 | Oncology outpatient (recurring) (ONCR) | payer MEDICARE, OTHER, SELFPAY ==
[2022-10-22 11:38] LABS: Basophils % 0.4 %; Eosinophils # 0.2 10^3/uL (0.0-0.8); Eosinophils % 5.5 %; Hematocrit 32.3 % (42.0-52.0); Hemoglobin 11.2 g/dL (11.7-16.6); Lymphocytes # 0.8 10^3/uL (0.8-4.8); Lymphocytes % 28.1 %; Mean Corpuscular HGB Conc 34.7 g/dL (30.0-36.0); Mean Corpuscular Hemoglobin 33.6 pg (28.0-34.0); Mean Platelet Volume 8.2 fL (7.4-10.4); Monocytes # 0.3 10^3/uL (0.2-0.9); Monocytes % 9.1 %; Neutrophils # 1.55 10^3/uL (1.8-7.7); Neutrophils % 56.5 %; Nucleated Red Blood Cells % 0 %; Platelet Count 176 10^3/cmm (130-400); Red Blood Count 3.33 10^6/uL (4.1-5.3); White Blood Count 2.7 10^3/uL (4.0-10.0)
[2022-10-22 11:59] LABS: Carbon Dioxide 25 mmol/L (22-29); Chloride 104 mmol/L (98-107); Potassium 4.5 mmol/L (3.5-5.1); Sodium 138 mmol/L (136-145)
[2022-10-22 12:00] LABS: Alanine Aminotransferase 21 U/L (0-41); Albumin Level 3.9 g/dL (3.5-5.2); Alkaline Phosphatase 67 U/L (40-130); Anion Gap 13.5 (5-19); Aspartate Amino Transferase 25 U/L (0-40); Blood Urea Nitrogen 27 mg/dL (8-23); Calcium 9.4 mg/dL (8.5-10.5); Globulin 2.7 g/dL (1.3-4.6); Glucose 108 mg/dL (65-115); Osmolality Calculated 292 mOsm/kg (285-295); Total Bilirubin 0.2 mg/dL (0.15-1.2); Total Protein 6.6 g/dL (6.6-8.7)
[2022-10-22 12:01] LABS: Prostate Specific Antigen < 0.014 ng/mL (0-4)
== END 2022-11-12 23:59 | disposition home or self-care (01) ==
PROVIDERS: Internal Medicine Hematology & Oncology; PCP Family Medicine; Visit Provider Radiology Radiation Oncology
DX: C61 Malignant neoplasm of prostate; Z90.89 Acquired absence of other organs; R19.7 Diarrhea, unspecified; F17.210 Nicotine dependence, cigarettes, uncomplicated; Z79.52 Long term (current) use of systemic steroids; Z79.818 Long term (current) use of other agents affecting estrogen receptors and estrogen levels; Z79.899 Other long term (current) drug therapy
CPT/HCPCS: 36415; 80053; 84153; 85025; 99213; 99214

== ENCOUNTER 2022-11-26 09:58 | Oncology outpatient (recurring) (ONCR) | payer MEDICARE, OTHER, SELFPAY ==
[2022-11-26 10:21] VITALS: BP 135/85; PULSE 80; RESP 18; TEMP 36.4; O2SAT 100
[2022-11-26 10:41] LABS: Basophils % 0.3 %; Eosinophils # 0.1 10^3/uL (0.0-0.8); Eosinophils % 4.1 %; Hematocrit 34.7 % (42.0-52.0); Lymphocytes # 0.8 10^3/uL (0.8-4.8); Lymphocytes % 26.1 %; Mean Corpuscular HGB Conc 34.6 g/dL (30.0-36.0); Mean Corpuscular Hemoglobin 32.6 pg (28.0-34.0); Mean Corpuscular Volume 94.3 fl (80-94); Mean Platelet Volume 8.5 fL (7.4-10.4); Monocytes # 0.2 10^3/uL (0.2-0.9); Monocytes % 6.1 %; Neutrophils # 1.99 10^3/uL (1.8-7.7); Neutrophils % 63.4 %; Nucleated Red Blood Cells % 0 %; Platelet Count 163 10^3/cmm (130-400); Red Blood Count 3.68 10^6/uL (4.1-5.3); Red Cell Distribution Width 12.4 % (12.1-15.1); White Blood Count 3.1 10^3/uL (4.0-10.0)
[2022-11-26 11:14] LABS: Alanine Aminotransferase 26 U/L (0-41); Albumin Level 4.1 g/dL (3.5-5.2); Alkaline Phosphatase 77 U/L (40-130); Anion Gap 16.5 (5-19); Aspartate Amino Transferase 22 U/L (0-40); Blood Urea Nitrogen 25 mg/dL (8-23); Calcium 9.7 mg/dL (8.5-10.5); Carbon Dioxide 23 mmol/L (22-29); Chloride 104 mmol/L (98-107); Globulin 2.7 g/dL (1.3-4.6); Glucose 109 mg/dL (65-115); Osmolality Calculated 293 mOsm/kg (285-295); Potassium 4.5 mmol/L (3.5-5.1); Sodium 139 mmol/L (136-145); Total Bilirubin 0.3 mg/dL (0.15-1.2); Total Protein 6.8 g/dL (6.6-8.7)
[2022-11-26 11:15] LABS: Prostate Specific Antigen < 0.014 ng/mL (0-4)
[2022-11-26] MEDS: leuprolide 22.5 mg Kit IM (12:30)
[2022-11-26 12:35] VITALS: BP 132/89; PULSE 80; RESP 18; TEMP 36.4; O2SAT 99
== END 2022-12-12 23:59 | disposition home or self-care (01) ==
PROVIDERS: Internal Medicine Hematology & Oncology; PCP Family Medicine; Visit Provider Radiology Radiation Oncology
DX: C61 Malignant neoplasm of prostate (principal); Z79.52 Long term (current) use of systemic steroids; Z79.818 Long term (current) use of other agents affecting estrogen receptors and estrogen levels; Z79.899 Other long term (current) drug therapy; F17.210 Nicotine dependence, cigarettes, uncomplicated
CPT/HCPCS: 36415; 80053; 84153; 85025; 96402; 99214; J9217

== ENCOUNTER 2023-02-18 10:05 | Oncology outpatient (recurring) (ONCR) | payer MEDICARE, OTHER, SELFPAY ==
[2023-02-18 10:27] VITALS: BMI 34.1
[2023-02-18 10:28] VITALS: BP 152/85; PULSE 70; RESP 18; TEMP 36.8; O2SAT 98
[2023-02-18 10:45] LABS: Basophils % 0.3 %; Eosinophils # 0.1 10^3/uL (0.0-0.8); Eosinophils % 3.4 %; Hematocrit 31.7 % (37-53); Lymphocytes % 30.4 %; Mean Corpuscular HGB Conc 34.1 g/dL (30-55); Mean Corpuscular Hemoglobin 32.1 pg (27-33); Mean Corpuscular Volume 94.3 fl (82-101); Mean Platelet Volume 8.1 fL (7.4-10.4); Monocytes # 0.2 10^3/uL (0.2-0.9); Monocytes % 7.2 %; Neutrophils # 1.86 10^3/uL (1.8-7.7); Neutrophils % 58.4 %; Nucleated Red Blood Cells % 0 %; Platelet Count 180 10^3/cmm (157-399); Red Blood Count 3.36 10^6/uL (3.85-5.65); White Blood Count 3.19 10^3/uL (3.29-11.43)
[2023-02-18 11:22] LABS: Alanine Aminotransferase 15 U/L (0-41); Albumin Level 4.5 g/dL (3.5-5.2); Alkaline Phosphatase 55 U/L (40-130); Anion Gap 14.3 (5-19); Aspartate Amino Transferase 18 U/L (0-40); Blood Urea Nitrogen 21 mg/dL (8-23); Calcium 9.5 mg/dL (8.5-10.5); Carbon Dioxide 23 mmol/L (22-29); Chloride 107 mmol/L (98-107); Globulin 2.4 g/dL (1.3-4.6); Glucose 89 mg/dL (65-115); Osmolality Calculated 292 mOsm/kg (285-295); Potassium 4.3 mmol/L (3.5-5.1); Sodium 140 mmol/L (136-145); Testosterone Total 6.3 ng/dL (193-740); Total Bilirubin 0.3 mg/dL (0.15-1.2); Total Protein 6.9 g/dL (6.6-8.7)
[2023-02-18 11:23] LABS: Prostate Specific Antigen < 0.014 ng/mL (0-4)
[2023-02-18] MEDS: leuprolide 22.5 mg Kit IM (12:52)
== END 2023-03-14 23:59 | disposition home or self-care (01) ==
PROVIDERS: Internal Medicine Hematology & Oncology; PCP Family Medicine; Visit Provider Radiology Radiation Oncology
DX: C61 Malignant neoplasm of prostate (principal); M81.0 Age-related osteoporosis without current pathological fracture; Z79.52 Long term (current) use of systemic steroids; Z79.818 Long term (current) use of other agents affecting estrogen receptors and estrogen levels; Z79.899 Other long term (current) drug therapy
CPT/HCPCS: 36415; 80053; 84153; 84403; 85025; 96402; 99215; J9217

== ENCOUNTER 2023-03-05 09:09 | Outpatient (CLI) | payer MEDICARE, SELFPAY ==
--- NOTE | 2023-03-05 09:30 | NM_ITS ---
WS: [id number] NUCLEAR MEDICINE BONE SCAN Radiopharmaceutical: 23.5 Tc-99m MDP mCi IV Injection site: Antecubital Postinjection imaging delay: 1 hr CLINICAL INFORMATION: follow up COMPARISON: 04/16/2022 FINDINGS: Bone lesions: There are no osseous lesions suspicious for metastatic disease. Soft tissue contours: Normal. Kidneys: Normal. Other findings: Degenerative arthritis both AC joints. Advanced arthritis both knees with periarticul ar uptake similar to previous. IMPRESSION: No evidence of osseous metastatic disease.
== END 2023-03-05 09:10 | disposition home or self-care (01) ==
LOC: RAD 09:10
PROVIDERS: PCP Family Medicine; Visit Provider Internal Medicine Medical Oncology
DX: C61 Malignant neoplasm of prostate (principal)
CPT/HCPCS: 78306; A9561

== ENCOUNTER 2023-03-18 12:51 | Outpatient (CLI) | payer MEDICARE, SELFPAY ==
--- NOTE | 2023-03-18 13:30 | XR_ITS ---
WS: [id number] SCREENING DEXA SCAN [facility] CLINICAL INFORMATION: Prostate cancer on hormonal therapy COMPARISON: None. FINDINGS: The L1-L4 bone mineral density measures 1.421 g/cm2. This corresponds to a T score score of 1.7 and Z score of 1.6. Left femoral neck bone mineral density measures 1.197 (g/cm2). This corresponds to a T score of 0.7 ( no units) and Z score of 1.2 (no units). LEFT forearm bone mineral density measures 0.950. This corresponds to a T score -0.4 and Z score of 0.7. IMPRESSION: Normal bone mineralization. Patient's FRAX calculated 10 year probability for major osteoporotic fracture is 4.8% and osteoporoti c hip fracture is 0.4%.
== END 2023-03-18 12:52 | disposition home or self-care (01) ==
LOC: RAD 12:55
PROVIDERS: PCP Family Medicine; Visit Provider Internal Medicine Medical Oncology
DX: C61 Malignant neoplasm of prostate (principal); Z79.818 Long term (current) use of other agents affecting estrogen receptors and estrogen levels
CPT/HCPCS: 77080

== ENCOUNTER 2023-12-04 10:03 | Emergency (ER) | payer MEDICARE, OTHER, SELFPAY ==
--- NOTE | 2023-12-04 10:10 | XR_ITS ---
WS: [id number] Exam: XR chest 1V portable [id number] Date/Time of Exam: 12/04/2023 10:11 AM Reason For Exam: upper abdominal pain Comparison 05/04/2020. The lungs are clear and fully inflated. Normal cardiomediastinal silhouette. No pleural effusions. [place] structures appear normal. XR/XR chest 1V portable [id number] IMPRESSION: 1. Negative chest.
[2023-12-04 10:11] VITALS: BP 148/86; PULSE 80; RESP 18; TEMP 36.8; O2SAT 98; BMI 32.3
--- NOTE | 2023-12-04 10:25 | W.ED.ABDPA2 ---
HPI - Abdominal Pain General: Chief Complaint: Abdominal Pain Stated Complaint: upper ABD pain Time Seen by Provider: 12/04/23 10:08 Source: patient Mode of arrival: ambulatory Limitations: no limitations History of Present Illness: Patient is a very nice 78-year-old male who presents to ED today along with his for evaluation of two separate episodes of epigastric discomfort. Patient states yesterday he had an episode of epigastric pain that began at rest. He states he does not remember how long episode lasted for but states it did not fully subside on its own. He states the remainder of the evening he was asymptomatic. He states he woke up around 4-5 this morning with the same discomfort. He states it went away enough for him to fall back to sleep. He states when he woke up again around 6 the pain was back again and lasted until around 9. He states on the way to the emergency department all of his pain subsided and at time of my initial examination he states he has zero discomfort. He states he never got short of breath or had any difficulty breathing. Denies dizziness or lightheadedness. He states pain never really seem to radiate into his chest. He states he does have a history of acid reflux and takes omeprazole. No known cardiac history. He has not noticed pain being affected by eating. Both episodes occurred while at rest. MD elicited complaint: abdominal pain Pertinent past history: none Onset (ago): day(s) (yesterday) Pain Consistency: intermittent and now resolved Location: Epigastric Severity: moderate Quality: other (states it felt like gravel moving around ) Radiation: none Migration to: no migration Exacerbating factors: nothing Relieving factors: nothing Associated Symptoms: Denies change in bowel habits, chills, diarrhea, dysuria, fever(s), hematochezia, melena, nausea and vomiting Review of Systems Const: Denies: fever(s), chills, body aches, fatigue or malaise ENMT: Denies: throat pain or odynophagia Card: Denies: chest pain Resp: Denies: dyspnea, productive cough, non-productive cough, pain on inspiration or chest congestion GI: Reports: abdominal pain; Denies: nausea, vomiting, diarrhea, change in bowel habits, hematochezia or melena : Denies: flank pain, difficulty urinating, dysuria, urinary frequency, urinary urgency or urinary hesitancy Musc: Denies: neck pain, back pain, extremity pain or joint pain Skin/Breast: Denies: rash Neuro: Denies: headache(s), numbness in extremities, weakness in extremities, sensory changes or dizziness PFSH ED PFSH: Medical History Bladder pain Right inguinal hernia BPH loc w urin obs/LUTS Abnormal prostate exam Elevated PSA History of colon cancer GERD (gastroesophageal reflux disease) BPH (benign prostatic hyperplasia) Hypertension Hyperlipidemia Peripheral neuropathy Surgical History History of inguinal hernia repair History of colonoscopy with polypectomy (12/2018) History of partial colectomy (~01/2019) 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 [place] History Mother , AT 72 Stroke Father , AT 62 CAD (coronary artery disease) Grandmother Cancer Denies family history of Diabetes Clotting disorder Dementia Hyperlipidemia Psychiatric illness Chronic kidney disease (CKD) Suicide Anesthesia complication Bleeding disorder Lung disease Hypertension Social History Smoking and tobacco/nicotine status: current every day tobacco/nicotine user smokeless tobacco Smokeless tobacco user: chewing tobacco Smokeless tobacco details: 46 years Alcohol intake: never Substance/Drug Use: never Marital status: Current occupational status: retired Do you think of yourself as: Straight/Heterosexual Jyoti/Oriental Orthodox: Mandaen Physical Exam Const: COMMON NORMALS: no acute distress, patient oriented x3, no limitations, alert and well nourished GENERAL APPEARANCE: cooperative NUTRITIONAL APPEARANCE: obese ORIENTATION/CONSCIOUSNESS: Yes awake, Yes oriented to person, Yes oriented to place and Yes oriented to time HENMT: COMMON NORMALS: normocephalic and atraumatic HEAD & SCALP: normal to inspection, normocephalic and atraumatic Eye: COMMON NORMALS: no scleral icterus Chest: COMMONS NORMALS: normal inspection of the chest and normal palpation of entire chest wall Resp: COMMON NORMALS: normal respiratory effort and clear to auscultation bilaterally AUSCULTATION: clear to auscultation bilaterally Cardio: COMMON NORMALS: regular rate and regular rhythm RATE: regular rate RHYTHM: regular rhythm GI: COMMON NORMALS: Normal to inspection, nondistended, normoactive bowel sounds present, Soft to palpation, non-tender, No hepatosplenomegaly present and no masses INSPECTION: Yes normal to inspection PALPATION: Yes Soft to palpation and Yes No hepatosplenomegaly present : COMMON NORMALS: Yes no CVA tenderness BLADDER/KIDNEY EXAM: Yes no CVA tenderness Back/Pelvis: COMMON NORMALS: no CVA tenderness and thoracic and lumbar spine normal to inspection Extremity: GENERAL: Yes normal exam except as noted Neuro: PAM COMA SCALE: document GCS findings Pam coma scale eye opening: Spontaneous Pam coma scale verbal response: Orientated Pam coma scale motor response: Obey commands [place] coma scale total score: 15 COMMON NORMALS: patient oriented x3, moves all extremities, no focal motor deficits, no sensory deficits noted and gait normal SENSORIUM/ORIENTATION: Yes alert, Yes oriented to person, Yes oriented to place and Yes oriented to time Skin: COMMON NORMALS: no rashes or lesions noted GENERAL SKIN EXAM: no rashes or lesions noted Course Vital Signs: Vital signs: Vital Signs Temperature 98.3 F 12/04/23 10:11 Pulse Rate 69 12/04/23 12:05 Respiratory Rate 18 12/04/23 10:11 Blood Pressure 169/97 12/04/23 12:05 Pulse Oximetry 98 12/04/23 12:05 MDM - Abdominal Pain Medical Decision Making Patient has continued to be completely asymptomatic throughout his emergency department stay. His baseline and repeat EKGs are nonischemic. His blood work overall is nonactionable. His baseline troponin was 71 with no prior baselines for comparison. His 2-hour trop is down to 55 making him have a delta of negative 15. History is not suspicious for ACS. He has never noticed any chest pains with exertional activity. He has felt somewhat winded with activity since 2019 when he had COVID. This has not worsened in any way. At this time recommend follow-up with his primary care provider next week. He was given very strict instructions regarding returning to the emergency department to which he verbalized understanding. Medical Records I reviewed the patient's medical records. Lab Data I reviewed the patient's lab results. 12/04/23 10:19 12/04/23 10:19 Labs/Radiology: Radiology Impressions Chest X-Ray 12/04/23 10:10 IMPRESSION: 1. Negative chest. Laboratory Results WBC 4.50 10^3/uL (3.29-11.43) 12/04/23 10:19 RBC 3.54 10^6/uL (3.85-5.65) L 12/04/23 10:19 Hgb 11.60 g/dL (11.27-16.99) 12/04/23 10:19 Hct 34.3 % (37-53) L 12/04/23 10:19 MCV 96.9 fl (82-101) 12/04/23 10:19 MCH 32.8 pg (27-33) 12/04/23 10:19 MCHC 33.8 g/dL (30-55) 12/04/23 10:19 RDW 12.7 % (12.1-15.1) 12/04/23 10:19 Plt Count 242 10^3/cmm (157-399) 12/04/23 10:19 MPV 9.6 fL (7.4-10.4) 12/04/23 10:19 Neut % (Auto) 76.5 % 12/04/23 10:19 Lymph % (Auto) 15.8 % 12/04/23 10:19 [place] % (Auto) 4.9 % 12/04/23 10:19 Eos % (Auto) 2.4 % 12/04/23 10:19 Baso % (Auto) 0.2 % 12/04/23 10:19 Neut # (Auto) 3.44 10^3/uL (1.8-7.7) 12/04/23 10:19 Lymph # (Auto) 0.7 10^3/uL (0.8-4.8) L 12/04/23 10:19 [place] # (Auto) 0.2 10^3/uL (0.2-0.9) 12/04/23 10:19 Eos # (Auto) 0.1 10^3/uL (0.0-0.8) 12/04/23 10:19 Baso # (Auto) 0.0 10^3/uL (0.0-0.1) 12/04/23 10:19 Nucleated RBC % (auto) 0 % 12/04/23 10:19 Nucleated RBCs # 0.0 /100WBC 12/04/23 10:19 Sodium 142 mmol/L (136-145) 12/04/23 10:19 Potassium 4.5 mmol/L (3.5-5.1) 12/04/23 10:19 Chloride 110 mmol/L (98-107) H 12/04/23 10:19 Carbon Dioxide 19 mmol/L (22-29) L 12/04/23 10:19 Anion Gap 17.5 (5-19) 12/04/23 10:19 BUN 22 mg/dL (8-23) 12/04/23 10:19 Creatinine 0.9 mg/dL (0.7-1.2) 12/04/23 10:19 GFR Calculation Not Reportable 12/04/23 10:19 Glucose 128 mg/dL (65-115) H 12/04/23 10:19 Calculated Osmolality 299 mOsm/kg (285-295) H 12/04/23 10:19 Calcium 9.4 mg/dL (8.5-10.5) 12/04/23 10:19 Total Bilirubin 0.6 mg/dL (0.15-1.2) 12/04/23 10:19 AST 64 U/L (0-40) H 12/04/23 10:19 ALT 45 U/L (0-41) H 12/04/23 10:19 Alkaline Phosphatase 78 U/L (40-130) 12/04/23 10:19 Troponin T Baseline 71 ng/L (0-15) H 12/04/23 10:19 Troponin T 120 Minute 55.41 ng/L (0-15) H 12/04/23 12:00 Delta Troponin T -15.59 ABS# (0-10) L 12/04/23 12:00 Total Protein 6.9 g/dL (6.6-8.7) 12/04/23 10:19 Albumin 4.3 g/dL (3.5-5.2) 12/04/23 10:19 Globulin 2.6 g/dL (1.3-4.6) 12/04/23 10:19 Lipase 43 U/L (13-60) 12/04/23 10:19 Urine Color Yellow (Yellow) 12/04/23 12:22 Urine Appearance Clear (CLEAR) 12/04/23 12:22 Urine pH 5 (5-7) 12/04/23 12:22 Ur Specific [place] 1.025 (1.005-1.030) 12/04/23 12:22 Urine Protein Trace (Negative) 12/04/23 12:22 Urine Glucose (UA) Norm (Normal) 12/04/23 12:22 Urine Ketones 1+ (Negative) H 12/04/23 12:22 Urine Blood Neg (Negative) 12/04/23 12:22 Urine Nitrate Negative (Negative) 12/04/23 12:22 Urine Bilirubin Neg (Negative) 12/04/23 12:22 Urine Urobilinogen 1 mg/dL (Negative) H 12/04/23 12:22 Ur Leukocyte Esterase Negative (Negative) 12/04/23 12:22 Urine RBC None /hpf (0-2) 12/04/23 12:22 Urine WBC None /hpf (0-5) 12/04/23 12:22 Ur Squamous Epith Cells None /hpf (0-5) 12/04/23 12:22 Amorphous Sediment Not Reportable 12/04/23 12:22 Urine Bacteria None /hpf (NONE) 12/04/23 12:22 Urine Mucus 1+ /hpf 12/04/23 12:22 All radiology interpretation(s) finalized by discharge Discharge Plan Discharge Patient Disposition: Home Clinical Impression: Epigastric pain Condition: Stable Prescriptions: No Action omeprazole 20 mg capsule,delayed release(DR/EC) 20 mg PO DAILY ascorbate calcium (vitamin C) 500 mg tablet 500 mg PO DAILY PRN megestrol 20 mg tablet 20 mg PO BID tamsulosin [Flomax] 0.4 mg capsule 0.4 mg PO BID Qty: 60 12RF Discharge Orders: Discharge ED (Routine); Ordered 12/04/23 Ordered By: Augusta Montero Referrals: Linda Lara MD [Primary Care Provider] - Patient Instructions: Abdominal Pain (ED) Activity Restrictions/Additional Instructions: As we discussed I would like you to return to the emergency department for any further onsets of severe/constant abdominal pain, any chest pain, shortness of breath, difficulty breathing, passing out episodes, significant shortness of breath or difficulty breathing, lightheadedness/dizziness, or any other concerns you may have. Otherwise I would like you to follow-up with your primary care provider next week. Coding Level of Care Code ED Medical Referral Coordinator for Misti Arita
--- NOTE | 2023-12-04 10:32 | ECG_ITS ---
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 Measurements Intervals [place] Rate: 68 P: -1 [place]: 165 QRS: -14 QRSD: 87 T: 62 QT: 368 QTc: 394 Interpretive Statements SINUS RHYTHM POSSIBLE RIGHT VENTRICULAR CONDUCTION DELAY [RSR (QR) IN V1/V2] MINIMAL VOLTAGE CRITERIA FOR LVH, CONSIDER NORMAL VARIANT [MEETS CRITERIA IN ONE OF: R(aVL), S(V1), R(V5), R(V5/V6)+S(V1)] NONSPECIFIC T-WAVE ABNORMALITY Compared to ECG 05/03/2020 04:25:18 T-wave abnormality now present Sinus bradycardia no longer present Electronically Signed On 12-04-2023 13:43:27 CDT by Chito Brian M.D. [id number]
[2023-12-04 10:40] LABS: Basophils % 0.2 %; Eosinophils # 0.1 10^3/uL (0.0-0.8); Eosinophils % 2.4 %; Hematocrit 34.3 % (37-53); Lymphocytes # 0.7 10^3/uL (0.8-4.8); Lymphocytes % 15.8 %; Mean Corpuscular HGB Conc 33.8 g/dL (30-55); Mean Corpuscular Hemoglobin 32.8 pg (27-33); Mean Corpuscular Volume 96.9 fl (82-101); Mean Platelet Volume 9.6 fL (7.4-10.4); Monocytes # 0.2 10^3/uL (0.2-0.9); Monocytes % 4.9 %; Neutrophils # 3.44 10^3/uL (1.8-7.7); Neutrophils % 76.5 %; Nucleated Red Blood Cells % 0 %; Platelet Count 242 10^3/cmm (157-399); Red Blood Count 3.54 10^6/uL (3.85-5.65); Red Cell Distribution Width 12.7 % (12.1-15.1)
[2023-12-04 11:03] LABS: Alanine Aminotransferase 45 U/L (0-41); Albumin Level 4.3 g/dL (3.5-5.2); Alkaline Phosphatase 78 U/L (40-130); Blood Urea Nitrogen 22 mg/dL (8-23); Calcium 9.4 mg/dL (8.5-10.5); Carbon Dioxide 19 mmol/L (22-29); Chloride 110 mmol/L (98-107); Creatinine Clr Calc Pharmacy 82.2726; Globulin 2.6 g/dL (1.3-4.6); Glucose 128 mg/dL (65-115); Lipase 43 U/L (13-60); Osmolality Calculated 299 mOsm/kg (285-295); Sodium 142 mmol/L (136-145); Total Bilirubin 0.6 mg/dL (0.15-1.2); Total Protein 6.9 g/dL (6.6-8.7)
[2023-12-04 11:04] LABS: Slide Review Slide Review Perform; Troponin(5th) Baseline 71 ng/L (0-15)
[2023-12-04 11:35] LABS: Anion Gap 17.5 (5-19); Potassium 4.5 mmol/L (3.5-5.1)
[2023-12-04 11:36] LABS: Aspartate Amino Transferase 64 U/L (0-40)
[2023-12-04 12:05] VITALS: BP 169/97; PULSE 69; O2SAT 98
--- NOTE | 2023-12-04 12:11 | ECG_ITS ---
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 Measurements Intervals [place] Rate: 67 P: 1 [place]: 128 QRS: -9 QRSD: 90 T: 33 QT: 384 QTc: 408 Interpretive Statements SINUS RHYTHM MINIMAL VOLTAGE CRITERIA FOR LVH, CONSIDER NORMAL VARIANT [MEETS CRITERIA IN ONE OF: R(aVL), S(V1), R(V5), R(V5/V6)+S(V1)] NONSPECIFIC T-WAVE ABNORMALITY Compared to ECG 12/04/2023 10:32:51 No significant changes Electronically Signed On 12-04-2023 14:02:05 CDT by Chito Brian M.D. [id number]
[2023-12-04 12:31] LABS: Troponin 5 2HR 55.41 ng/L (0-15)
[2023-12-04 12:35] LABS: Troponin 5 2HR Delta -15.59 ABS# (0-10)
[2023-12-04] MEDS: aspirin 325 mg Tablet PO (12:41)
[2023-12-04 12:48] LABS: Add Urine Microscopic? YES; Bilirubin Urine Neg (Negative); Blood Urine Neg (Negative); Glucose Urine UA Norm (Normal); Ketones Urine 1+ (Negative); Leukocyte Esterase Urine Negative (Negative); Nitrate Urine Negative (Negative); Protein Urine Trace (Negative); Specific Gravity, Urine 1.025 (1.005-1.030); Urine Appearance Clear (CLEAR); Urine Color Yellow (Yellow); Urobilinogen Urine 1 mg/dL (Negative); pH Urine 5 (5-7)
[2023-12-04 12:51] LABS: Add Urine Culture? No; Mucus Urine 1+ /hpf
[2023-12-04 13:18] VITALS: BP 169/97; PULSE 69; O2SAT 98
== END 2023-12-04 13:00 | disposition home or self-care (01) ==
PROVIDERS: Emergency Provider Physician Assistant; PCP Family Medicine
DX: R10.13 Epigastric pain (principal); F17.220 Nicotine dependence, chewing tobacco, uncomplicated; I10 Essential (primary) hypertension; E78.5 Hyperlipidemia, unspecified; Z85.038 Personal history of other malignant neoplasm of large intestine
CPT/HCPCS: 36415; 71045; 80053; 81001; 83690; 84484; 85025; 93005; 99285